=== PATIENT | female | born 1965 | race Asian ===

== ENCOUNTER 2018-03-28 17:28 | Observation (INO) | payer BC ==
[2018-03-28] MEDS ORDERED: TORAdol 30 mg Injection IV ONE ×2 (17:56→21:09)
[2018-03-28] MEDS ORDERED: Sodium Chloride 0.9% 1000 ML 1,000 ML IV STA (17:56)
[2018-03-28] MEDS ORDERED: Zofran 4 MG/2 ML VIAL IV ONE ×2 (17:56→21:09)
[2018-03-28] MEDS ORDERED: Sodium Chloride 0.9% 1000 ML 1,000 ML ONE (18:00)
[2018-03-28] MEDS ORDERED: TORAdol 30 mg Injection ONE ×2 (18:00→18:05)
[2018-03-28] MEDS ORDERED: Zofran 4 MG/2 ML VIAL ONE ×2 (18:00→18:05)
--- NOTE | 2018-03-28 18:00 | ERPHSYRPT ---
<DANIEL LEDEZMA - Last Filed: 03/28/18 20:29> - History of Present Illness Historian: patient Exam Limitations: no limitations Patient Subjective Stated Complaint: pt reports abd pain beginning last night states that pain would increase and she would have a small bm-pt is known lactose intolerant so she drank milk thinking she was constipated-reports diarrhea and vomiting x 1-states pain has continued Triage Nursing Assessment: pt warm and [id number] soft and nontender to palp- pt moaning upon arrival-resp nonlabored Timing/Duration: yesterday Activities at Onset: none Quality: cramping, sharpness Abdominal Pain Onset Location: RLQ Pain Radiation: no radiation Severity of Pain-Max: severe Severity of Pain-Current: severe Modifying Factors: Improves With: nothing Associated Symptoms: nausea, vomiting Previous symptoms: no prior history Hx Tetanus, Diphtheria Vaccination/Date Given: No Hx Influenza Vaccination/Date Given: No Hx Pneumococcal Vaccination/Date Given: No Immunizations Up to Date: Yes <WARD ERICKSON - Last Filed: 03/29/18 19:37> - History of Present Illness Time Seen by Provider: 03/28/18 17:55 Physician History: Pt started c/o RLQ abdominal pain, nausea, vomiting since yesterday. She denies fever, chills, diarrhea, or urinary complaints. (WARD ERICKSON) Allergies/Adverse Reactions: No Known Drug Allergies Allergy (Unverified 03/28/18 17:41) Home Medications: No Reportable Medications [No Reported Medications] 03/28/18 [History] - Review of Systems Constitutional: No Symptoms Respiratory: No Symptoms Cardiac: No Symptoms Abdominal/Gastrointestinal: Abdominal Pain, Nausea, Vomiting All Other Systems: Reviewed and Negative <WARD ERICKSON - Last Filed: 03/29/18 19:37> - Past Medical History Pertinent Past Medical History: No - Past Surgical History Past Surgical History: No - Social History Smoking Status: Never smoker Exposure to second hand smoke: No Drug Use: none Patient Lives Alone: No - Female History Hx Last Menstrual Period: currently Hx Now: No <WARD ERICKSON - Last Filed: 03/29/18 19:37> - Physical Exam General Appearance: mild distress Eye Exam: eyes nml inspection Ears, Nose, Throat Exam: normal ENT inspection Neck Exam: normal inspection, non-tender, supple Respiratory Exam: normal breath sounds, lungs clear, airway intact, No chest tenderness Cardiovascular Exam: regular rate/rhythm, normal heart sounds, normal peripheral pulses, No murmur Gastrointestinal/Abdomen Exam: soft, normal bowel sounds, tenderness (RLQ, mod. severe), No distention, No mass, No guarding, No pulsatile mass, No rebound, No hernia Pelvic Exam: not done Extremity Exam: normal inspection Neurologic Exam: alert, oriented x 3 Skin Exam: normal color, warm, dry, No rash Lymphatic Exam: No adenopathy SpO2 Interpretation: normal SpO2: 99 Oxygen Delivery: Room Air <WARD ERICKSON - Last Filed: 03/29/18 19:37> - Nursing Vital Signs Nursing Vital Signs: Initial Vital Signs Temperature 98.4 F 03/28/18 17:33 Pulse Rate 85 03/28/18 17:33 Respiratory Rate 18 03/28/18 17:33 Blood Pressure 168/75 03/28/18 17:33 O2 Sat by Pulse Oximetry 99 03/28/18 17:33 Pain Scale Pain Intensity 1 <DANIEL LEDEZMA - Last Filed: 03/28/18 20:29> - Course Nursing assessment & vital signs reviewed: Yes <WARD ERICKSON - Last Filed: 03/29/18 19:37> Ordered Tests: Active Orders 24 hr Category Date Time Status BLOOD CULTURE Stat Lab 03/28/18 20:40 Received UA W/ MICROSCOPIC Stat Lab 03/28/18 19:00 Completed Medication Summary Generic Name Dose Route Start Last Admin Trade Name Freq PRN Reason Stop Dose Admin Acetaminophen 650 mg 03/29/18 01:09 Tylenol 325 Mg PO 04/28/18 01:08 Q4H PRN PRN PAIN AND/OR FEVER Hydrocodone Bitart/Acetaminophen 1 tab 03/29/18 02:48 03/29/18 19:26 [place] 5/325 Mg PO 04/03/18 02:47 1 tab Q4H PRN PRN Administration PAIN Enoxaparin Sodium 40 mg 03/29/18 16:00 03/29/18 16:46 Enoxaparin Sodium SQ 04/28/18 15:59 40 mg Q24H DOMIINC Administration Dextrose/Sodium Chloride 1,000 mls @ 90 mls/hr 03/29/18 01:00 04/30/18 13:49 Dextrose 5% -0.45 Nacl 1000 Ml IV 04/28/18 00:59 90 mls/hr .Q11H7M DOMINIC Administration Cefoxitin Sodium 1 g in 50 mls @ 100 mls/hr 03/29/18 06:00 03/29/18 17:54 Mefoxin 1 Gm/ D5w 50 Ml IV 03/30/18 00:29 100 mls/hr Q6HT DOMINIC Administration Morphine Sulfate 2 - 4 mg 03/29/18 07:10 Morphine Sulfate 2 Mg Inj IV 04/03/18 07:09 Q2HPRN PRN PAIN Morphine Sulfate 2 - 4 mg 03/29/18 07:11 Morphine Sulfate 4 Mg Inj IV 04/03/18 07:10 Q2H PRN PRN PAIN Ondansetron HCl 4 mg 03/29/18 01:09 Zofran 4 Mg/2 Ml Vial IV 04/28/18 01:08 Q6H PRN PRN NAUSEA/VOMITING Discontinued Medications Generic Name Dose Route Start Last Admin Trade Name Freq PRN Reason Stop Dose Admin Bupivacaine HCl Confirm 03/28/18 21:26 Sensorcaine 0.25% 10 Ml Administered 03/28/18 21:27 Dose 10 ml .ROUTE .STK-MED ONE Famotidine Confirm 03/28/18 21:21 Pepcid 20 Mg Vial Administered 03/28/18 21:22 Dose 20 mg IV .STK-MED ONE Famotidine 20 mg 03/28/18 21:33 03/28/18 21:34 Pepcid 20 Mg Vial IV 03/28/18 21:34 20 mg 1HRPRIOR ONE Administration Sodium Chloride 1,000 mls @ 999 mls/hr 03/28/18 17:56 03/28/18 18:04 Sodium Chloride 0.9% 1000 Ml IV 03/28/18 18:56 999 mls/hr .Q1H1M STA Administration Sodium Chloride Confirm 03/28/18 18:00 Sodium Chloride 0.9% 1000 Ml Administered 03/28/18 18:01 Dose 1,000 mls @ ud .ROUTE .STK-MED ONE Sodium Chloride Confirm 03/28/18 18:05 Sodium Chloride 0.9% 1000 Ml Administered 03/28/18 18:06 Dose 1,000 mls @ ud .ROUTE .STK-MED ONE Piperacillin Sod/Tazobactam Sod 3.375 gm in 100 mls @ 200 mls/hr 03/28/18 20: 35 03/28/18 20:40 Zosyn 3.375gm/100 Ml D5w IV 03/28/18 21:04 200 mls/hr STAT STA Administration Piperacillin Sod/Tazobactam Sod Confirm 03/28/18 20:38 Zosyn 3.375gm/100 Ml D5w Administered 03/28/18 20:39 Dose 3.375 gm in 100 mls @ ud IV .STK-MED ONE Cefoxitin Sodium Confirm 03/28/18 21:21 Mefoxin 2 Gm Premix Administered 03/28/18 21:22 Dose 2 gm in 50 mls @ ud IV .STK-MED ONE Lactated Ringer's Confirm 03/28/18 21:21 Lactated Ringers Administered 03/28/18 21:22 Dose 1,000 mls @ ud IV .STK-MED ONE Lactated Ringer's Confirm 03/28/18 21:26 Lactated Ringers Administered 03/28/18 21:27 Dose 1,000 mls @ ud IV .STK-MED ONE Cefoxitin Sodium 2 gm in 50 mls @ 100 mls/hr 03/28/18 22:00 03/28/18 21:34 Mefoxin 2 Gm Premix IV 03/28/18 22:29 100 mls/hr ONCALLTOOR DOMINIC Administration Lactated Ringer's 1,000 mls @ 50 mls/hr 03/28/18 22:00 03/28/18 21:34 Lactated Ringers IV 04/27/18 21:59 50 mls/hr .Q20H DOMINIC Administration Sodium Chloride Confirm 03/28/18 21:38 Sodium Chloride 0.9% 1000 Ml Administered 03/28/18 21:39 Dose 3,000 mls @ ud .ROUTE .STK-MED ONE Dextrose/Sodium Chloride Confirm 03/29/18 00:49 Dextrose 5% -0.45 Nacl 1000 Ml Administered 03/29/18 00:50 Dose 1,000 mls @ ud IV .STK-MED ONE Cefoxitin Sodium 1 g in 50 mls @ 100 mls/hr 03/29/18 01:00 03/29/18 01:52 Mefoxin 1 Gm/ D5w 50 Ml IV 04/28/18 00:59 Not Given Q12H DOMINIC Ketorolac Tromethamine 30 mg 03/28/18 17:56 03/28/18 18:04 Toradol 30 Mg Injection IV 03/28/18 17:57 30 mg STAT ONE Administration Ketorolac Tromethamine Confirm 03/28/18 18:00 Toradol 30 Mg Injection Administered 03/28/18 18:01 Dose 30 mg .ROUTE .STK-MED ONE Ketorolac Tromethamine Confirm 03/28/18 18:05 Toradol 30 Mg Injection Administered 03/28/18 18:06 Dose 30 mg .ROUTE .STK-MED ONE Levalbuterol HCl Confirm 03/28/18 22:56 Xopenex 1.25 Mg/0.5 Ml Ud Nebule Administered 03/28/18 22:57 Dose 1.25 mg IH .STK-MED ONE Levalbuterol HCl 1.25 mg 03/28/18 22:50 03/29/18 15:58 Xopenex 1.25 Mg/0.5 Ml Ud Nebule IH 03/28/18 22:51 Not Given STAT ONE Morphine Sulfate 2 mg 03/29/18 01:06 Morphine Sulfate 2 Mg Inj IV 04/03/18 01:05 Q2HPRN PRN PAIN Ondansetron HCl 4 mg 03/28/18 17:56 03/28/18 18:04 Zofran 4 Mg/2 Ml Vial IV 03/28/18 17:57 4 mg STAT ONE Administration Ondansetron HCl Confirm 03/28/18 18:00 Zofran 4 Mg/2 Ml Vial Administered 03/28/18 18:01 Dose 4 mg .ROUTE .STK-MED ONE Ondansetron HCl Confirm 03/28/18 18:05 Zofran 4 Mg/2 Ml Vial Administered 03/28/18 18:06 Dose 4 mg .ROUTE .STK-MED ONE Sodium Chloride Confirm 03/28/18 22:56 Sodium Chloride 3 Ml Ud Nebules Administered 03/28/18 22:57 Dose 3 ml IH .STK-MED ONE Lab/Rad Data: Laboratory Result Diagrams 03/28/18 18:00 03/28/18 18:00 Laboratory Results 03/28/18 03/28/18 03/28/18 Range/Units 19:00 18:00 18:00 WBC 27.0 H* (4.0-10.5) K/mm3 RBC 4.65 (4.1-5.4) M/mm3 Hgb 7.9 L (12.0-16.0) gm/dl Hct 28.5 L (35-47) % MCV 61.3 L (78-100) fl MCH 16.9 L (26-32) pg MCHC 27.7 L (32-36) g/dl RDW 20.5 H (11.5-14.0) % Plt Count 411 (150-450) K/mm3 MPV 9.5 (6-9.5) fl Absolute Granulocytes 24.18 H (1.4-6.9) Segmented Neutrophils 89 H (36.0-66.0) % Lymphocytes (Manual) 9 L (24-44) % Monocytes (Manual) 2 (0.0-12.0) % Platelet Estimate NORMAL (NORMAL) RBC Morphology ABNORMAL Poikilocytosis 2+ Anisocytosis 3+ Microcytosis 1+ Target Cells RARE Ovalocytes 1+ Smear Path Review Pending Sodium 136 L (137-145) mmol/L Potassium 3.6 (3.5-5.1) mmol/L Chloride 100 (98-107) mmol/L Carbon Dioxide 20 L (22-30) mmol/L Anion Gap 20.4 H (5-15) MEQ/L BUN 15 (7-17) mg/dL Creatinine 1.16 H (0.52-1.04) mg/dL Estimated GFR 52.1 ML/MIN Glucose 153 H (74-106) mg/dL Calcium 9.6 (8.4-10.2) mg/dL Total Bilirubin 1.00 (0.2-1.3) mg/dL AST 16 (14-36) U/L ALT 16 (0-35) U/L Alkaline Phosphatase 67 (38-126) U/L Serum Total Protein 8.4 H (6.3-8.2) g/dL Albumin 4.6 (3.5-5.0) g/dL Amylase 85 (30-110) U/L Lipase 101 (23-300) U/L Ur Collection Type CATH Urine Color YELLOW (YELLOW) Urine Appearance CLEAR (CLEAR) Urine pH 5.0 (5-6) Ur Specific [place] 1.010 (1.005-1.025) Urine Protein TRACE (Negative) Urine Ketones NEGATIVE (NEGATIVE) Urine Blood TRACE NON-HEM (0-5) Ulises/ul Urine Nitrite NEGATIVE (NEGATIVE) Urine Bilirubin NEGATIVE (NEGATIVE) Urine Urobilinogen NORMAL (0-1) mg/dL Ur Leukocyte Esterase NEGATIVE (NEGATIVE) Urine Microscopic RBC 0-2 (0-2) /HPF Urine Microscopic WBC 0-2 (0-5) /HPF Ur Epithelial Cells RARE (FEW) /HPF Urine Bacteria RARE (NEGATIVE) /HPF Urine Culture Reflexed NO (NO) Urine Glucose NEGATIVE (NEGATIVE) mg/dL Specimen Received 03/28/18 1900 - Progress Discussed with DrHetal: Nathan (OBS - 2024) <DANIEL LEDEZMA - Last Filed: 03/28/18 20:29> - Progress Progress: improved <WARD ERICKSON - Last Filed: 03/29/18 19:37> - Progress Progress Note: 03/28/18 20:[address] LEDEZMA @ 2015: PERRL, EOMI, PHARYNX PINK, LUNGS CLEAR, NO CARDIAC RUB, MODERATE RLQ ABDOMINAL TENDERNESS WITH GUARDING, NO ANKLE EDEMA, ALERT & COOPERATIVE. (DANIEL LEDEZMA) 03/28/18 19:11 I discussed her results and current condition with Dr Ledezma, he will follow up on her CT abdomen, pelvis. (WRAD ERICKSON) - Departure Time of Disposition: 20:34 Departure Disposition: Observation Critical Care Time: No <DANIEL LEDEZMA - Last Filed: 03/28/18 20:29> <WARD ERICKSON - Last Filed: 03/29/18 19:37> - Departure Clinical Impression: ACUTE APPENDICITIS Condition: Stable
[2018-03-28] MEDS ORDERED: Sodium Chloride 0.9% 1000 ML 0 ML ONE (18:05)
[2018-03-28 18:26] LABS: ALBUMIN 4.6 g/dL (3.5-5.0); ANION GAP 20.4 MEQ/L (5-15); Calcium 9.6 mg/dL (8.4-10.2); Creatinine 1 1.16 mg/dL (0.52-1.04); Potassium 3.6 mmol/L (3.5-5.1); Total Protein 8.4 g/dL (6.3-8.2)
[2018-03-28 18:31] LABS: Granulocyte Absolute (ANC) 24.18 (1.4-6.9); Hematocrit 28.5 % (35-47); Hemoglobin 7.9 gm/dl (12.0-16.0); Mean Cell Volume 61.3 fl (78-100); Mean Corpuscular Hgb Concent. 27.7 g/dl (32-36); Mean Platelet Volume 9.5 fl (6-9.5); Platelet Count 411 K/mm3 (150-450); Red Blood Count 4.65 M/mm3 (4.1-5.4); Red Cell Distribution Width 20.5 % (11.5-14.0)
[2018-03-28 18:33] LABS: Mean Corpuscular Hemoglobin 16.9 pg (26-32)
[2018-03-28 20:11] LABS: Appearance CLEAR (CLEAR)
[2018-03-28 20:12] LABS: Bacteria RARE /HPF (NEGATIVE); Bilirubin NEGATIVE (NEGATIVE); Blood TRACE NON-HEM Ery/ul (0-5); Epithelial Cells RARE /HPF (FEW); Glucose NEGATIVE (NEGATIVE); Ketones NEGATIVE (NEGATIVE); Leukocyte Esterase NEGATIVE (NEGATIVE); Nitrite NEGATIVE (NEGATIVE); Protein,Urine Dip TRACE (Negative); RBC 0-2 /HPF (0-2); Urobilinogen NORMAL mg/dL (0-1); WBC 0-2 /HPF (0-5)
[2018-03-28] MEDS ORDERED: Zosyn 3.375GM/100 Ml D5W 3.375 GM/100 ML IVPB IV STA (20:35)
[2018-03-28] MEDS ORDERED: Zosyn 3.375GM/100 Ml D5W 3.375 GM/100 ML IVPB IV ONE (20:38)
[2018-03-28] MEDS ORDERED: Quelicin Fliptop 200 MG/10 ML IV ONE (21:09)
[2018-03-28] MEDS ORDERED: Decadron 4 MG INJ IV ONE (21:09)
[2018-03-28] MEDS ORDERED: SUBLIMAZE 100 MCG/2 ML IV ONE (21:09)
[2018-03-28] MEDS ORDERED: BRIDION 200MG/2ML IV ONE (21:09)
[2018-03-28] MEDS ORDERED: DIPRIVAN 200 MG/20 ML IV ONE (21:09)
[2018-03-28] MEDS ORDERED: Zemuron 100 MG/10 ML IV ONE (21:09)
--- NOTE | 2018-03-28 21:17 | XRAY ---
Indication: Abdomen pain, constipation, nausea, and vomiting. Multiple contiguous axial images obtained through the abdomen and pelvis using 80 cc Isovue 370 contrast only. Comparison: None. Lung bases demonstrate minimal bibasilar fibrosis/scarring. No infiltrate or effusion. Heart is not enlarged. Noncontrasted stomach and bowel loops appear unremarkable. Appendix is prominent up to 11 mm diameter with wall thickening and periappendiceal stranding consistent with acute appendicitis. 5 mm appendicolith at the base. Tiny free fluid but no walled off fluid collection or free air. Minimal distal descending/sigmoid diverticulosis without diverticulitis. 1.3 cm gallstone. A few bilateral renal cortical cysts, largest on the left measuring 1 cm. Urinary bladder demonstrates tiny intraluminal air bubbles either from recent catheterization versus air forming bacterial infection. Remaining liver, pancreas, spleen, adrenal glands, kidneys, ureters, bladder, and uterus appear unremarkable. Mild iliac calcifications without AAA. No pathologic retroperitoneal lymphadenopathy. Osseous structures intact with minimal levoscoliosis. Impression: 1. CT findings as detailed favoring acute appendicitis with appendicolith. No Complications. 2. 1.3 cm gallstone. Ultrasound may yield further information. 3. Urinary bladder intraluminal air bubbles either from recent catheterization versus air forming bacterial infection. 4. Minimal colonic diverticulosis and bilateral renal cysts. Comment: Preliminary interpretation was made by [facility]. No discrepancy. CTDI 23.29
[2018-03-28] MEDS ORDERED: Pepcid 20 MG VIAL IV ONE ×2 (21:21→21:33)
[2018-03-28] MEDS ORDERED: MEFOXIN 2 GM PREMIX** 2 GM/50 ML ML IV ONE (21:21)
[2018-03-28] MEDS ORDERED: Lactated Ringers 1,000 ML IV ONE ×2 (21:21→21:26)
[2018-03-28] MEDS ORDERED: Sensorcaine 0.25% 10 ML ONE (21:26)
[2018-03-28] MEDS ORDERED: Lactated Ringers 1,000 ML IV SCH (22:00)
[2018-03-28] MEDS ORDERED: MEFOXIN 2 GM PREMIX** 2 GM/50 ML ML IV SCH (22:00)
[2018-03-28] MEDS ORDERED: Xopenex 1.25 MG/0.5 ML UD NEBULE IH ONE ×2 (22:50→22:56)
[2018-03-28] MEDS ORDERED: Sodium Chloride 3 ML UD NEBULES IH ONE (22:56)
[2018-03-29] MEDS ORDERED: Dextrose 5% -0.45 NaCl 1000 ML 1,000 ML IV ONE (00:49)
[2018-03-29] MEDS: Dextrose 5% -0.45 NaCl 1000 ML 1,000 ML IV SCH ×2 (00:55→13:49)
[2018-03-29] MEDS ORDERED: MEFOXIN 1 Gm/ D5W 50 Ml** 1 G/50 ML ML IV SCH (01:00)
[2018-03-29] MEDS ORDERED: MORPHINE SULFATE 2 MG INJ IV PRN ×2 (01:06→07:10)
[2018-03-29] MEDS ORDERED: Zofran 4 MG/2 ML VIAL IV PRN (01:09)
[2018-03-29] MEDS ORDERED: TYLENOL 325 MG PO PRN (01:09)
[2018-03-29 01:31] LABS: Lymphocytes 9 % (24-44); Monocyte 2 % (0.0-12.0); Neutrophils 89 % (36.0-66.0); Platelet Estimate NORMAL (NORMAL); Total Cells Counted 100
[2018-03-29 01:32] LABS: ANISOCYTOSIS 3+; Poikilocytosis 2+
[2018-03-29 01:33] LABS: Microcytosis 1+
[2018-03-29 01:34] LABS: Ovalocytes 1+
[2018-03-29 01:35] LABS: Targert Cells RARE
[2018-03-29] MEDS: NORCO 5/325 MG PO PRN ×4 (02:52→19:26)
[2018-03-29 06:03] LABS: Hematocrit 24.7 % (35-47); Mean Cell Volume 62.4 fl (78-100); Mean Corpuscular Hgb Concent. 27.5 g/dl (32-36); Platelet Count 326 K/mm3 (150-450); Red Blood Count 3.96 M/mm3 (4.1-5.4); Red Cell Distribution Width 20.2 % (11.5-14.0); White Blood Count 21.3 K/mm3 (4.0-10.5)
[2018-03-29 06:09] LABS: Mean Corpuscular Hemoglobin 17.1 pg (26-32)
[2018-03-29 06:10] LABS: Hemoglobin 6.8 gm/dl (12.0-16.0)
[2018-03-29] MEDS ORDERED: MORPHINE SULFATE 4 MG INJ IV PRN (07:11)
[2018-03-29] MEDS: MEFOXIN 1 Gm/ D5W 50 Ml** 1 G/50 ML ML IV SCH ×3 (07:34→17:54)
[2018-03-29 08:04] LABS: BAND 33 % (0.0-2.0); Lymphocytes 1 % (24-44); Monocyte 3 % (0.0-12.0); Neutrophils 63 % (36.0-66.0); Platelet Estimate NORMAL (NORMAL); Total Cells Counted 100
[2018-03-29 08:05] LABS: Polychromasia 1+
[2018-03-29 08:06] LABS: Hypochromia 2+; Toxic Granulation 1+
--- NOTE | 2018-03-29 09:07 | XRAY ---
Indication: Chest congestion. Postop appendectomy. Comparison: August 02, 2010. Portable chest underinflated today with bilateral subsegmental atelectasis. No infiltrate, consolidation, or pneumothorax. Heart is borderline enlarged reasonably explained by underinflation. Bony thorax intact. Impression: Nonacute underinflated chest. Comment: Preliminary interpretation was made by [facility]. No discrepancy.
--- NOTE | 2018-03-29 12:37 | OP ---
SURGERY DATE/TIME: 03/28/20182205 PREOPERATIVE DIAGNOSIS: Acute appendicitis. POSTOPERATIVE DIAGNOSIS: Acute ruptured appendicitis with abscess. PROCEDURE: Laparoscopic appendectomy with evaluation of pelvic abscess and right suprahepatic abscess. SURGEON: Duane Philip M.D. ANESTHESIA: General. COMPLICATIONS: None. CONDITION: Stable. INDICATION: A patient with acute pain. She does look toxic. She was immediately taken to surgery. DESCRIPTION OF PROCEDURE: General anesthetic. Routine prep and drape. Veress needle inserted. Opening pressure of 1, insufflating pressure 14. A 12 port introduced. Two - 5's laterally. Good visualization. The base of the appendix was identified. It was clearly gangrenous, clearly perforated and there was at least 8 ounces of abscess down the pelvis at least 6 to 8 ounces of abscess over the liver. The abscesses were evacuated. Program Evaluation Consultant culture sent. The base of the appendix was good, taken with 2.5 vascular cartridge. It was necessary to take the mesoappendix with three cartridges. Appendix placed in a condom bag and removed. The pelvis was gently irrigated. The right gutter irrigated and the suprahepatic area irrigated and this time it cleaned up nicely and there were no drains placed. Port site closed with 0 Vicryl with hole closure device. Skin closed 4-0 Vicryl and Steri-Strips. The patient tolerated the procedure satisfactorily.
[2018-03-29] MEDS ORDERED: ENOXAPARIN SODIUM SQ SCH (16:00)
[2018-03-30] MEDS: MEFOXIN 1 Gm/ D5W 50 Ml** 1 G/50 ML ML IV SCH (00:28)
[2018-03-30] MEDS: Dextrose 5% -0.45 NaCl 1000 ML 1,000 ML IV SCH (01:44)
[2018-03-30] MEDS: NORCO 5/325 MG PO PRN ×3 (02:55→13:57)
[2018-03-30 05:34] LABS: BASOPHIL % 0.1 % (0.0-0.4); Basophil (Absolute #) 0.01 (0-0.4); Eosinophil % 0.2 % (0.00-5.0); Eosinophil (Absolute #) 0.03 (0-0.5); Granulocyte Absolute (ANC) 16.72 (1.4-6.9); Granulocytes % 89.9 % (36.0-66.0); Hematocrit 22.7 % (35-47); Lymphocyte (Absolute #) 0.99 (1.0-4.6); Lymphocytes % 5.3 % (24.0-44.0); Mean Cell Volume 62.7 fl (78-100); Mean Corpuscular Hemoglobin 17.1 pg (26-32); Mean Corpuscular Hgb Concent. 27.3 g/dl (32-36); Monocyte (Absolute #) 0.83 (0.0-1.3); Monocytes % 4.5 % (0.0-12.0); Platelet Count 309 K/mm3 (150-450); Red Blood Count 3.62 M/mm3 (4.1-5.4); Red Cell Distribution Width 20.1 % (11.5-14.0); White Blood Count 18.6 K/mm3 (4.0-10.5)
[2018-03-30 05:43] LABS: Hemoglobin 6.2 gm/dl (12.0-16.0)
[2018-03-30] MEDS ORDERED: Lasix 20 MG/2 ML IV ONE (06:14)
[2018-03-30 09:05] LABS: Slide Review 1 YES
[2018-03-30 09:08] LABS: ABO TYPING A; Antibody Screen NEGATIVE (NEGATIVE); RH TYPING POSITIVE
[2018-03-30] MEDS ORDERED: Sodium Chloride 0.9% 500 ML 500 ML IV SCH (09:15)
[2018-03-30] MEDS ORDERED: Lasix 20 MG/2 ML ONE (12:52)
[2018-03-30 13:09] VITALS: BP 154/79; PULSE 79; O2SAT 97
[2018-03-30 14:37] LABS: Hemoglobin 7.9 gm/dl (12.0-16.0)
== END 2018-03-30 15:45 | disposition home or self-care (01) ==
LOC: ED 17:28 → MED SURG 21:08
PROVIDERS: ADMIT Surgery; ATTEND Surgery
PROC: 0DTJ4ZZ Resection of Appendix, Percutaneous Endoscopic Approach (ICD-10-PCS; principal; 2018-03-28)
DX: K35.2 Acute appendicitis with generalized peritonitis (principal)
CPT/HCPCS: 36000; 36415; 44970; 71045; 74177; 80053; 81000; 82150; 83690; 84703; 85014; 85018; 85025; 86850; 86900; 86901; 86922; 87040; 87070; 87077; 87186; 94002; 94640; 94760; 94770; 96360; 96365; 99285; G0378; P9016; P9612; 36430; 99140; J0330; J0694; J1100; J1650; J1885; J1940; J2270; J2405; J2543; J2704; J3010; A9270-GY

== ENCOUNTER 2022-10-25 17:27 | Emergency (ER) | payer OTHER ==
[2022-10-25] MEDS ORDERED: Sodium Chloride 0.9% 1000 ML 1,000 ML IV STA ×3 (17:51→21:04)
[2022-10-25] MEDS ORDERED: Sodium Chloride 0.9% 1000 ML 1,000 ML ONE ×3 (18:04→19:13)
[2022-10-25 18:32] LABS: Hematocrit 44.9 % (35-47); Hemoglobin 15.2 g/dL (12.0-16.0); Mean Cell Volume 96.1 fL (78-100); Mean Corpuscular Hemoglobin 32.5 pg (26-32); Mean Corpuscular Hgb Concent. 33.9 g/dL (32-36); Mean Platelet Volume 11.8 fL (7.5-11.0); Platelet Count 80 x10^3/uL (150-450); Red Blood Count 4.67 x10^6/uL (4.1-5.4); Red Cell Distribution Width 15.8 % (11.5-14.0); White Blood Count 16.9 x10^3/uL (4.0-10.5)
[2022-10-25 18:34] LABS: Appearance TURBID (CLEAR); Bilirubin LARGE (NEGATIVE); Glucose NEGATIVE (NEGATIVE); Ketones SMALL-15 (NEGATIVE); Specific Gravity 1.025 (1.005-1.025)
[2022-10-25 18:35] LABS: Dipstick done @ ? MAIN LAB; Nitrite NEGATIVE (NEGATIVE); Protein,Urine Dip >=300 (Negative); RBC LARGE Ery/ul (0-5); Urobilinogen 2 mg/dL (0-1)
[2022-10-25] MEDS ORDERED: PIPERACILLIN/TAZOBACTAM 3.375 GM in Sodium Chloride 100ML MINI-BAG PLUS 100 ML IV ONE (18:37)
[2022-10-25 18:39] LABS: VBG CARBOXYHEMOGLOBIN 2.3 % T HGB (0.0-6.9); VBG HCO3- 10.1 meq/L (22-28); VBG HEMOGLOBIN 15.8; VBG O2 SATURATION 83.7 (95-100); VBG pH 7.25 (7.32-7.42)
[2022-10-25 18:46] LABS: Bacteria FEW /HPF (NEGATIVE); Epithelial Cells FEW /HPF (FEW); Mucus SLIGHT /HPF (NEGATIVE); RBC >101 /HPF (0-2); Urine Cultured Indicated? YES; WBC 51-100 /HPF (0-5)
[2022-10-25 18:48] LABS: ALBUMIN 3.3 g/dL (3.5-5.0); BILIRUBIN,TOTAL 4.6 mg/dL (0.2-1.3); Calcium 9.5 mg/dL (8.4-10.2); Creatinine 1 4.54 mg/dL (0.52-1.04); EST GLOMERULAR FILTRATION RATE 10.6 ML/MIN; Total Protein 8.2 g/dL (6.3-8.2)
--- NOTE | 2022-10-25 18:52 | ERPHSYRPT ---
- History of Present Illness Time Seen by Provider: 10/25/22 17:34 Source: patient Exam Limitations: no limitations Patient Subjective Stated Complaint: pt here for burning with urination, she has been on 2 rounds of antiboitcs, Triage Nursing Assessment: pt alert, walked in, resp easy, skin w/d/p, abd soft, Physician History: 57-year-old female with a history of diabetes mellitus, hypertension, recurrent UTIs, recently finished 2 course of antibiotics for UTI presented in the ER with chief complaint of increasing urinary frequency, dysuria for the last few days and since morning having hematuria without clots. Patient reports she started to feel better after her last round of antibiotic with Keflex but again having similar symptoms. Patient report razor blade pain with urination. No nausea or vomiting reported. Feels weak fatigued and tired. Patient is tachycardic on presentation with heart rate in 130s. Patient denies any abdominal pain nausea or vomiting. No difficulty breathing. No fever or chills reported. Timing/Duration: week(s), gradual onset, worse Quality: sharpness Onset Location: urethral Pain Radiation: none Severity of Pain-Max: moderate Severity of Pain-Current: none Prior abdominal problems: similar symptoms Sexual intercourse history: non-contributory Modifying Factors: Worsens With: urinating Associated Symptoms: dysuria, urinary frequency, No abdominal pain, No vomiting, No lower back pain, No swelling, No syncope, No vaginal discharge Allergies/Adverse Reactions: Iodinated Contrast Media Allergy (Mild, Verified 10/25/22 17:54) Itching iv contrast on 06-17-22 made patient itch. Home Medications: Glipizide 10 mg [Glucotrol 10 MG] 5 mg PO DAILY 10/25/22 [History] Losartan Potassium 100 mg PO DAILY 10/25/22 [History] Hx Tetanus, Diphtheria Vaccination/Date Given: No Hx Influenza Vaccination/Date Given: No Hx Pneumococcal Vaccination/Date Given: No Travel Risk - International Travel Have you traveled outside of the country in past 3 weeks: No - Coronavirus Screening Are you exhibiting any of the following symptoms?: No - Vaccine Status Have you recieved a Covid-19 vaccination: Yes Instructional Consultant: Unknown - Vaccination Dates Date of 2cond Vaccination (if applicable): 2020 Dates if Unknown: ? - Review of Systems Constitutional: Fever, Chills, Fatigue, Weakness Eyes: No Symptoms Ears, Nose, & Throat: No Symptoms Respiratory: No Symptoms Cardiac: No Symptoms Abdominal/Gastrointestinal: No Symptoms Genitourinary Symptoms: Dysuria, Frequency, Hematuria, No Flank Pain, No Vaginal Bleeding Musculoskeletal: No Symptoms Skin: No Symptoms Neurological: No Symptoms Psychological: No Symptoms Endocrine: No Symptoms Hematologic/Lymphatic: No Symptoms Immunological/Allergic: No Symptoms - Past Medical History Pertinent Past Medical History: No Neurological History: No Pertinent History ENT History: No Pertinent History Cardiac History: Hypertension Respiratory History: No Pertinent History Endocrine Medical History: Diabetes Type II Musculoskeletal History: No Pertinent History GI Medical History: No Pertinent History History: No Pertinent History Psycho-Social History: No Pertinent History Female Reproductive Disorders: No Pertinent History - Past Surgical History Past Surgical History: No - Social History Smoking Status: Never smoker Exposure to second hand smoke: No Drug Use: none Patient Lives Alone: No - Nursing Vital Signs Nursing Vital Signs: Initial Vital Signs Temperature 97.4 F 10/25/22 17:46 Pulse Rate 127 H 10/25/22 17:46 Respiratory Rate 22 10/25/22 17:46 Blood Pressure 103/48 10/25/22 17:46 O2 Sat by Pulse Oximetry 98 10/25/22 17:46 Pain Scale Pain Intensity 0 - Physical Exam General Appearance: no apparent distress, alert Eye Exam: PERRL/EOMI Ears, Nose, Throat Exam: normal ENT inspection, TMs normal, pharynx normal, moist mucous membranes Neck Exam: normal inspection, non-tender, supple, full range of motion Respiratory Exam: normal breath sounds, lungs clear Cardiovascular Exam: normal heart sounds, tachycardia Gastrointestinal/Abdomen Exam: soft, normal bowel sounds, No tenderness Back Exam: normal inspection, normal range of motion Extremity Exam: normal inspection, normal range of motion Neurologic Exam: alert, oriented x 3, cooperative SpO2 Interpretation: normal SpO2: 98 O2 Delivery: Room Air Procedures - Central Line Time Of Procedure: 22:44 Timeout: Performed Central Line Lumen: triple Lumen Size: 7 German Central Line Procedure: chlorahexadine prep, sterile drapes applied, Aseptic Technique, Seldinger Technique Central Line Postion: femoral (R) Anesthesia: 1% Lidocaine cc's of anesthesia: 3 Ultrasound Guided Placement: Yes Complications: none Central Line Post Position: good blood return - Course EKG Interpreted by Me: RATE ([id number]), Sinus Tach, NORMAL AXIS, NORMAL INTERVALS (Clean ribbon margin and lateral leads. Mild ST depression in inferior leads.) Ordered Tests: Active Orders 24 hr Category Date Time Status IV Insertion STAT Care 10/25/22 17:51 Active IV Insertion-2nd Peripheral STAT Care 10/25/22 18:09 Active NPO (ED) STAT Care 10/25/22 17:51 Active ABDOMEN AND PELVIS W/0 CONTRAS [CT] Stat Exams 10/25/22 17:52 Completed BLOOD CULTURE Stat Lab 10/25/22 18:28 Received BMP Stat Lab 10/25/22 21:26 Completed CBC W DIFF Stat Lab 10/25/22 18:27 Completed CBC W DIFF Stat Lab 10/26/22 05:15 Completed CMP Stat Lab 10/25/22 18:27 Completed CMP Stat Lab 10/26/22 05:15 Completed CULTURE,URINE Stat Lab 10/25/22 18:08 Received LIPASE Stat Lab 10/25/22 17:55 Completed Lactic Acid Stat Lab 10/25/22 18:00 Completed Lactic Acid Stat Lab 10/25/22 20:12 Completed Lactic Acid Stat Lab 10/25/22 23:08 Completed Manual Differential NC Stat Lab 10/25/22 18:27 Completed Manual Differential NC Stat Lab 10/26/22 05:15 Completed POCT GLUCOSE Stat Lab 10/25/22 18:18 Completed PROCALCITONIN Stat Lab 10/25/22 18:28 Completed PROCALCITONIN Stat Lab 10/26/22 05:15 Completed UA W/RFX CULTURE Stat Lab 10/25/22 18:08 Completed VBG [VENOUS BLOOD GAS] Stat Lab 10/25/22 18:11 Completed Medication Summary Generic Name Dose Route Start Last Admin Trade Name Freq PRN Reason Stop Dose Admin Sodium Chloride 1,000 mls @ 125 mls/hr 10/25/22 19:30 10/25/22 23:39 Sodium Chloride 0.9% 1000 Ml IV 11/24/22 19:29 0 mls/hr .Q8H DOMINIC Infusion Norepinephrine/Dextrose 8 mg in 250 mls @ 15 mls/hr 10/25/22 22:48 10/26/22 04:40 Norepinephrine 8 Mg/250 Ml-D5w IV 11/24/22 22:47 8 mcg/min .[id number] PRN 15 mls/hr HYPOTENSION Titration Protocol 8 MCG/MIN Lactated Ringer's 1,000 mls @ 150 mls/hr 10/25/22 23:45 10/25/22 23:39 Lactated Ringers IV 11/24/22 23:44 150 mls/hr .Q6H40M DOMINIC Administration Sodium Chloride 1,000 mls @ 150 mls/hr 10/26/22 05:45 10/26/22 05:43 Sodium Chloride 0.9% 1000 Ml IV 11/25/22 05:44 150 mls/hr .Q6H40M DOMINIC Administration Discontinued Medications Generic Name Dose Route Start Last Admin Trade Name Palmerq PRN Reason Stop Dose Admin Sodium Chloride 1,000 mls @ 999 mls/hr 10/25/22 17:51 10/25/22 19:21 Sodium Chloride 0.9% 1000 Ml IV 10/25/22 18:51 Infused .Q1H1M STA Infusion Sodium Chloride Confirm 10/25/22 18:04 Sodium Chloride 0.9% 1000 Ml Administered 10/25/22 18:05 Dose 1,000 mls @ ud .ROUTE .STK-MED ONE Sodium Chloride 1,000 mls @ 999 mls/hr 10/25/22 18:09 10/25/22 20:20 Sodium Chloride 0.9% 1000 Ml IV 10/25/22 19:09 Infused .Q1H1M STA Infusion Sodium Chloride Confirm 10/25/22 18:10 Sodium Chloride 0.9% 1000 Ml Administered 10/25/22 18:11 Dose 1,000 mls @ ud .ROUTE .STK-MED ONE Piperacillin Sod/Tazobactam 100 mls @ 200 mls/hr 10/25/22 18:37 10/25/22 19:14 Sod 3.375 gm/ Sodium Chloride IV 10/25/22 19:06 200 mls/hr STAT ONE Administration Sodium Chloride Confirm 10/25/22 19:09 Sodium Chloride 100ml Mini-Bag Plus Administered 10/25/22 19:10 Dose 100 mls @ ud IV .STK-MED ONE Sodium Chloride Confirm 10/25/22 19:13 Sodium Chloride 0.9% 1000 Ml Administered 10/25/22 19:14 Dose 1,000 mls @ ud .ROUTE .STK-MED ONE Sodium Chloride 1,000 mls @ 999 mls/hr 10/25/22 21:04 10/25/22 21:07 Sodium Chloride 0.9% 1000 Ml IV 10/25/22 22:04 999 mls/hr .Q1H1M STA Administration Norepinephrine/Dextrose Confirm 10/25/22 22:45 Norepinephrine 8 Mg/250 Ml-D5w Administered 10/25/22 22:46 Dose 8 mg in 250 mls @ ud IV .STK-MED ONE Vancomycin HCl 1 gm in 200 mls @ 125 mls/hr 10/25/22 22:56 10/25/22 23:20 Vancomycin 1 Gram/200 Ml Bag IV 10/26/22 00:31 125 mls/hr ONCE ONE 125 mls/hr Administration Vancomycin HCl Confirm 10/25/22 23:12 Vancomycin 1 Gram/200 Ml Bag Administered 10/25/22 23:13 Dose 1 gm in 200 mls @ ud IV .STK-MED ONE Piperacillin Sod/Tazobactam 100 mls @ 200 mls/hr 10/26/22 05:01 10/26/22 05:47 Sod 2.25 gm/ Sodium Chloride IV 10/26/22 05:30 200 mls/hr STAT ONE Administration Piperacillin Sod/Tazobactam Sod Confirm 10/25/22 19:09 Piperacillin/Tazobactam Sodium 3.375 Gm Vial Administered 10/25/22 19:10 Dose 3.375 gm IV .STK-MED ONE Sodium Bicarbonate 50 meq 10/26/22 06:14 10/26/22 06:22 Sodium Bicarbonate 1 Meq/Ml 50ml Syringe IV 10/26/22 06:15 50 meq STAT ONE Administration Sodium Bicarbonate Confirm 10/26/22 06:21 Sodium Bicarbonate 1 Meq/Ml 50ml Syringe Administered 10/26/22 06:22 Dose 50 meq IV .STK-MED ONE Vancomycin HCl 125 mg 10/25/22 22:54 10/25/22 23:40 Vancomycin Hcl 125 Mg Capsule PO 10/25/22 22:55 125 mg ONCE STA Administration Lab/Rad Data: Laboratory Result Diagrams 10/26/22 05:15 10/26/22 05:15 Laboratory Results 10/26/22 10/26/22 10/26/22 Range/Units 05:15 05:15 05:15 WBC 16.0 H (4.0-10.5) x10^3/uL RBC 4.31 (4.1-5.4) x10^6/uL Hgb 14.1 (12.0-16.0) g/dL Hct 41.8 (35-47) % MCV 97.0 (78-100) fL MCH 32.7 H (26-32) pg MCHC 33.7 (32-36) g/dL RDW 16.2 H (11.5-14.0) % Plt Count 69 L (150-450) x10^3/uL MPV 11.8 H (7.5-11.0) fL Gran % 48.0 (36.0-66.0) % Immature Gran % (Auto) 4.7 H (0.00-0.4) % Nucleat RBC Rel Count 0.2 H (0.00-0.1) % Eos # (Auto) 4.21 H (0-0.5) x10^3/uL Immature Gran # (Auto) 0.75 H (0.00-0.03) x10^3u/L Absolute Lymphs (auto) 1.06 (1.0-4.6) x10^3/uL Absolute Monos (auto) 2.17 H (0.0-1.3) x10^3/uL Absolute Nucleated RBC 0.04 H (0.00-0.01) x10^3u/L Lymphocytes % 6.6 L (24.0-44.0) % Monocytes % 13.5 H (0.0-12.0) % Eosinophils % 26.3 H (0.00-5.0) % Basophils % 0.9 (0.0-0.4) % Absolute Granulocytes 7.70 H (1.4-6.9) x10^3/uL Segmented Neutrophils (36.0-66.0) % Band Neutrophils (0.0-2.0) % Lymphocytes (Manual) (24-44) % Monocytes (Manual) (0.0-12.0) % Basophils # 0.14 (0-0.4) x10^3/uL Toxic Granulation Dohle Bodies Platelet Estimate (NORMAL) RBC Morphology pO2/FiO2 Ratio % VBG pH (7.32-7.42) VBG pCO2 at Pat Temp (42-55) mm/Hg VBG pO2 at Pat Temp (25-40) mm/Hg VBG HCO3 (22-28) meq/L VBG O2 Sat (Jonathan) (95-100) VBG Base Excess (-2.0-2.0) VBG Hemoglobin VBG Carboxyhemoglobin (0.0-6.9) % T HGB POC Potassium (3.5-5.1) Sodium 135 L (137-145) mmol/L Potassium 3.5 (3.5-5.1) mmol/L Chloride 106 (98-107) mmol/L Carbon Dioxide 10 L* (22-30) mmol/L Anion Gap 22.8 H (5-15) MEQ/L BUN 48 H (7-17) mg/dL Creatinine 3.63 H (0.52-1.04) mg/dL Estimated GFR 13.7 ML/MIN Glucose 103 (74-106) mg/dL POC Glucometer (74 to 106) mg/dL Lactic Acid (0.4-2.0) Calcium 8.4 (8.4-10.2) mg/dL Total Bilirubin 4.80 H (0.2-1.3) mg/dL AST 27 (14-36) U/L ALT 49 H (0-35) U/L Alkaline Phosphatase 242 H (38-126) U/L Serum Total Protein 6.9 (6.3-8.2) g/dL Albumin 2.7 L (3.5-5.0) g/dL Lipase (23-300) U/L Procalcitonin 40.900 H* (0.030-0.080) ng/mL Urinalys Dipstick Clnc Urine Color (YELLOW) Urine Appearance (CLEAR) Urine pH (5-6) Ur Specific B[place] (1.005-1.025) POC Urine Protein Conf (Negative) Urine Ketones (NEGATIVE) Urine Nitrite (NEGATIVE) Urine Bilirubin (NEGATIVE) Urine Urobilinogen (0-1) mg/dL Urine Leukocytes (NEGATIVE) Urine WBC (Auto) (0-5) /HPF Urine RBC (Auto) (0-2) /HPF U Epithel Cells (Auto) (FEW) /HPF Urine Bacteria (Auto) (NEGATIVE) /HPF Urine RBC (0-5) Ulises/ul Urine Mucus (Auto) (NEGATIVE) /HPF Ur Culture Indicated? Urine Glucose (NEGATIVE) mg/dL Influenza Type A Ag (NEGATIVE) Influenza Type B Ag (NEGATIVE) RSV (PCR) (Negative) SARS-CoV-2 (PCR) (NEGATIVE) 10/25/22 10/25/22 10/25/22 Range/Units 23:08 21:26 20:12 WBC (4.0-10.5) x10^3/uL RBC (4.1-5.4) x10^6/uL Hgb (12.0-16.0) g/dL Hct (35-47) % MCV (78-100) fL MCH (26-32) pg MCHC (32-36) g/dL RDW (11.5-14.0) % Plt Count (150-450) x10^3/uL MPV (7.5-11.0) fL Gran % (36.0-66.0) % Immature Gran % (Auto) (0.00-0.4) % Nucleat RBC Rel Count (0.00-0.1) % Eos # (Auto) (0-0.5) x10^3/uL Immature Gran # (Auto) (0.00-0.03) x10^3u/L Absolute Lymphs (auto) (1.0-4.6) x10^3/uL Absolute Monos (auto) (0.0-1.3) x10^3/uL Absolute Nucleated RBC (0.00-0.01) x10^3u/L Lymphocytes % (24.0-44.0) % Monocytes % (0.0-12.0) % Eosinophils % (0.00-5.0) % Basophils % (0.0-0.4) % Absolute Granulocytes (1.4-6.9) x10^3/uL Segmented Neutrophils (36.0-66.0) % Band Neutrophils (0.0-2.0) % Lymphocytes (Manual) (24-44) % Monocytes (Manual) (0.0-12.0) % Basophils # (0-0.4) x10^3/uL Toxic Granulation Dohle Bodies Platelet Estimate (NORMAL) RBC Morphology pO2/FiO2 Ratio % VBG pH (7.32-7.42) VBG pCO2 at Pat Temp (42-55) mm/Hg VBG pO2 at Pat Temp (25-40) mm/Hg VBG HCO3 (22-28) meq/L VBG O2 Sat (Jonathan) (95-100) VBG Base Excess (-2.0-2.0) VBG Hemoglobin VBG Carboxyhemoglobin (0.0-6.9) % T HGB POC Potassium (3.5-5.1) Sodium 134 L (137-145) mmol/L Potassium 3.7 (3.5-5.1) mmol/L Chloride 107 (98-107) mmol/L Carbon Dioxide 9 L* (22-30) mmol/L Anion Gap 22.4 H (5-15) MEQ/L BUN 47 H (7-17) mg/dL Creatinine 4.09 H (0.52-1.04) mg/dL Estimated GFR 12.0 ML/MIN Glucose 88 (74-106) mg/dL POC Glucometer (74 to 106) mg/dL Lactic Acid 6.4 H 8.8 H (0.4-2.0) Calcium 8.2 L (8.4-10.2) mg/dL Total Bilirubin (0.2-1.3) mg/dL AST (14-36) U/L ALT (0-35) U/L Alkaline Phosphatase (38-126) U/L Serum Total Protein (6.3-8.2) g/dL Albumin (3.5-5.0) g/dL Lipase (23-300) U/L Procalcitonin (0.030-0.080) ng/mL Urinalys Dipstick Clnc Urine Color (YELLOW) Urine Appearance (CLEAR) Urine pH (5-6) Ur Specific Bunnlevel (1.005-1.025) POC Urine Protein Conf (Negative) Urine Ketones (NEGATIVE) Urine Nitrite (NEGATIVE) Urine Bilirubin (NEGATIVE) Urine Urobilinogen (0-1) mg/dL Urine Leukocytes (NEGATIVE) Urine WBC (Auto) (0-5) /HPF Urine RBC (Auto) (0-2) /HPF U Epithel Cells (Auto) (FEW) /HPF Urine Bacteria (Auto) (NEGATIVE) /HPF Urine RBC (0-5) Ulises/ul Urine Mucus (Auto) (NEGATIVE) /HPF Ur Culture Indicated? Urine Glucose (NEGATIVE) mg/dL Influenza Type A Ag (NEGATIVE) Influenza Type B Ag (NEGATIVE) RSV (PCR) (Negative) SARS-CoV-2 (PCR) (NEGATIVE) 10/25/22 10/25/22 10/25/22 Range/Units 18:36 18:28 18:27 WBC (4.0-10.5) x10^3/uL RBC (4.1-5.4) x10^6/uL Hgb (12.0-16.0) g/dL Hct (35-47) % MCV (78-100) fL MCH (26-32) pg MCHC (32-36) g/dL RDW (11.5-14.0) % Plt Count (150-450) x10^3/uL MPV (7.5-11.0) fL Gran % (36.0-66.0) % Immature Gran % (Auto) (0.00-0.4) % Nucleat RBC Rel Count (0.00-0.1) % Eos # (Auto) (0-0.5) x10^3/uL Immature Gran # (Auto) (0.00-0.03) x10^3u/L Absolute Lymphs (auto) (1.0-4.6) x10^3/uL Absolute Monos (auto) (0.0-1.3) x10^3/uL Absolute Nucleated RBC (0.00-0.01) x10^3u/L Lymphocytes % (24.0-44.0) % Monocytes % (0.0-12.0) % Eosinophils % (0.00-5.0) % Basophils % (0.0-0.4) % Absolute Granulocytes (1.4-6.9) x10^3/uL Segmented Neutrophils (36.0-66.0) % Band Neutrophils (0.0-2.0) % Lymphocytes (Manual) (24-44) % Monocytes (Manual) (0.0-12.0) % Basophils # (0-0.4) x10^3/uL Toxic Granulation Dohle Bodies Platelet Estimate (NORMAL) RBC Morphology pO2/FiO2 Ratio % VBG pH (7.32-7.42) VBG pCO2 at Pat Temp (42-55) mm/Hg VBG pO2 at Pat Temp (25-40) mm/Hg VBG HCO3 (22-28) meq/L VBG O2 Sat (Jonathan) (95-100) VBG Base Excess (-2.0-2.0) VBG Hemoglobin VBG Carboxyhemoglobin (0.0-6.9) % T HGB POC Potassium (3.5-5.1) Sodium 134 L (137-145) mmol/L Potassium 4.0 (3.5-5.1) mmol/L Chloride 100 (98-107) mmol/L Carbon Dioxide 9 L* (22-30) mmol/L Anion Gap 29.0 H (5-15) MEQ/L BUN 47 H (7-17) mg/dL Creatinine 4.54 H (0.52-1.04) mg/dL Estimated GFR 10.6 ML/MIN Glucose 112 H (74-106) mg/dL POC Glucometer (74 to 106) mg/dL Lactic Acid (0.4-2.0) Calcium 9.5 (8.4-10.2) mg/dL Total Bilirubin 4.60 H (0.2-1.3) mg/dL AST 28 (14-36) U/L ALT 58 H (0-35) U/L Alkaline Phosphatase 294 H (38-126) U/L Serum Total Protein 8.2 (6.3-8.2) g/dL Albumin 3.3 L (3.5-5.0) g/dL Lipase (23-300) U/L Procalcitonin 66.800 H* (0.030-0.080) ng/mL Urinalys Dipstick Clnc Urine Color (YELLOW) Urine Appearance (CLEAR) Urine pH (5-6) Ur Specific [place] (1.005-1.025) POC Urine Protein Conf (Negative) Urine Ketones (NEGATIVE) Urine Nitrite (NEGATIVE) Urine Bilirubin (NEGATIVE) Urine Urobilinogen (0-1) mg/dL Urine Leukocytes (NEGATIVE) Urine WBC (Auto) (0-5) /HPF Urine RBC (Auto) (0-2) /HPF U Epithel Cells (Auto) (FEW) /HPF Urine Bacteria (Auto) (NEGATIVE) /HPF Urine RBC (0-5) Ulises/ul Urine Mucus (Auto) (NEGATIVE) /HPF Ur Culture Indicated? Urine Glucose (NEGATIVE) mg/dL Influenza Type A Ag NEGATIVE (NEGATIVE) Influenza Type B Ag NEGATIVE (NEGATIVE) RSV (PCR) NEGATIVE (Negative) SARS-CoV-2 (PCR) NEGATIVE (NEGATIVE) 10/25/22 10/25/22 10/25/22 Range/Units 18:27 18:18 18:11 WBC 16.9 H (4.0-10.5) x10^3/uL RBC 4.67 (4.1-5.4) x10^6/uL Hgb 15.2 (12.0-16.0) g/dL Hct 44.9 (35-47) % MCV 96.1 (78-100) fL MCH 32.5 H (26-32) pg MCHC 33.9 (32-36) g/dL RDW 15.8 H (11.5-14.0) % Plt Count 80 L (150-450) x10^3/uL MPV 11.8 H (7.5-11.0) fL Gran % (36.0-66.0) % Immature Gran % (Auto) (0.00-0.4) % Nucleat RBC Rel Count (0.00-0.1) % Eos # (Auto) (0-0.5) x10^3/uL Immature Gran # (Auto) (0.00-0.03) x10^3u/L Absolute Lymphs (auto) (1.0-4.6) x10^3/uL Absolute Monos (auto) (0.0-1.3) x10^3/uL Absolute Nucleated RBC (0.00-0.01) x10^3u/L Lymphocytes % (24.0-44.0) % Monocytes % (0.0-12.0) % Eosinophils % (0.00-5.0) % Basophils % (0.0-0.4) % Absolute Granulocytes (1.4-6.9) x10^3/uL Segmented Neutrophils 55 (36.0-66.0) % Band Neutrophils 31 H (0.0-2.0) % Lymphocytes (Manual) 7 L (24-44) % Monocytes (Manual) 7 (0.0-12.0) % Basophils # (0-0.4) x10^3/uL Toxic Granulation 1+ Dohle Bodies 1+ Platelet Estimate NORMAL (NORMAL) RBC Morphology NORMAL pO2/FiO2 Ratio 21.0 % VBG pH 7.25 L (7.32-7.42) VBG pCO2 at Pat Temp 23 L* (42-55) mm/Hg VBG pO2 at Pat Temp 52 H (25-40) mm/Hg VBG HCO3 10.1 L* (22-28) meq/L VBG O2 Sat (Jonathan) 83.7 L (95-100) VBG Base Excess -15.0 L (-2.0-2.0) VBG Hemoglobin 15.8 VBG Carboxyhemoglobin 2.3 (0.0-6.9) % T HGB POC Potassium 4.0 (3.5-5.1) Sodium (137-145) mmol/L Potassium (3.5-5.1) mmol/L Chloride (98-107) mmol/L Carbon Dioxide (22-30) mmol/L Anion Gap (5-15) MEQ/L BUN (7-17) mg/dL Creatinine (0.52-1.04) mg/dL Estimated GFR ML/MIN Glucose (74-106) mg/dL POC Glucometer 101 (74 to 106) mg/dL Lactic Acid (0.4-2.0) Calcium (8.4-10.2) mg/dL Total Bilirubin (0.2-1.3) mg/dL AST (14-36) U/L ALT (0-35) U/L Alkaline Phosphatase (38-126) U/L Serum Total Protein (6.3-8.2) g/dL Albumin (3.5-5.0) g/dL Lipase (23-300) U/L Procalcitonin (0.030-0.080) ng/mL Urinalys Dipstick Clnc Urine Color (YELLOW) Urine Appearance (CLEAR) Urine pH (5-6) Ur Specific [place] (1.005-1.025) POC Urine Protein Conf (Negative) Urine Ketones (NEGATIVE) Urine Nitrite (NEGATIVE) Urine Bilirubin (NEGATIVE) Urine Urobilinogen (0-1) mg/dL Urine Leukocytes (NEGATIVE) Urine WBC (Auto) (0-5) /HPF Urine RBC (Auto) (0-2) /HPF U Epithel Cells (Auto) (FEW) /HPF Urine Bacteria (Auto) (NEGATIVE) /HPF Urine RBC (0-5) Ulises/ul Urine Mucus (Auto) (NEGATIVE) /HPF Ur Culture Indicated? Urine Glucose (NEGATIVE) mg/dL Influenza Type A Ag (NEGATIVE) Influenza Type B Ag (NEGATIVE) RSV (PCR) (Negative) SARS-CoV-2 (PCR) (NEGATIVE) 10/25/22 10/25/22 10/25/22 Range/Units 18:08 18:00 17:55 WBC (4.0-10.5) x10^3/uL RBC (4.1-5.4) x10^6/uL Hgb (12.0-16.0) g/dL Hct (35-47) % MCV (78-100) fL MCH (26-32) pg MCHC (32-36) g/dL RDW (11.5-14.0) % Plt Count (150-450) x10^3/uL MPV (7.5-11.0) fL Gran % (36.0-66.0) % Immature Gran % (Auto) (0.00-0.4) % Nucleat RBC Rel Count (0.00-0.1) % Eos # (Auto) (0-0.5) x10^3/uL Immature Gran # (Auto) (0.00-0.03) x10^3u/L Absolute Lymphs (auto) (1.0-4.6) x10^3/uL Absolute Monos (auto) (0.0-1.3) x10^3/uL Absolute Nucleated RBC (0.00-0.01) x10^3u/L Lymphocytes % (24.0-44.0) % Monocytes % (0.0-12.0) % Eosinophils % (0.00-5.0) % Basophils % (0.0-0.4) % Absolute Granulocytes (1.4-6.9) x10^3/uL Segmented Neutrophils (36.0-66.0) % Band Neutrophils (0.0-2.0) % Lymphocytes (Manual) (24-44) % Monocytes (Manual) (0.0-12.0) % Basophils # (0-0.4) x10^3/uL Toxic Granulation Dohle Bodies Platelet Estimate (NORMAL) RBC Morphology pO2/FiO2 Ratio % VBG pH (7.32-7.42) VBG pCO2 at Pat Temp (42-55) mm/Hg VBG pO2 at Pat Temp (25-40) mm/Hg VBG HCO3 (22-28) meq/L VBG O2 Sat (Jonathan) (95-100) VBG Base Excess (-2.0-2.0) VBG Hemoglobin VBG Carboxyhemoglobin (0.0-6.9) % T HGB POC Potassium (3.5-5.1) Sodium (137-145) mmol/L Potassium (3.5-5.1) mmol/L Chloride (98-107) mmol/L Carbon Dioxide (22-30) mmol/L Anion Gap (5-15) MEQ/L BUN (7-17) mg/dL Creatinine (0.52-1.04) mg/dL Estimated GFR ML/MIN Glucose (74-106) mg/dL POC Glucometer (74 to 106) mg/dL Lactic Acid 11.6 H (0.4-2.0) Calcium (8.4-10.2) mg/dL Total Bilirubin (0.2-1.3) mg/dL AST (14-36) U/L ALT (0-35) U/L Alkaline Phosphatase (38-126) U/L Serum Total Protein (6.3-8.2) g/dL Albumin (3.5-5.0) g/dL Lipase 125 (23-300) U/L Procalcitonin (0.030-0.080) ng/mL Urinalys Dipstick Clnc MAIN LAB Urine Color BROWN A (YELLOW) Urine Appearance TURBID (CLEAR) Urine pH 5.0 (5-6) Ur Specific [place] 1.025 (1.005-1.025) POC Urine Protein Conf >=300 A (Negative) Urine Ketones SMALL-15 A (NEGATIVE) Urine Nitrite NEGATIVE (NEGATIVE) Urine Bilirubin LARGE A (NEGATIVE) Urine Urobilinogen 2 A (0-1) mg/dL Urine Leukocytes LARGE A (NEGATIVE) Urine WBC (Auto) 51-100 A (0-5) /HPF Urine RBC (Auto) >101 A (0-2) /HPF U Epithel Cells (Auto) FEW (FEW) /HPF Urine Bacteria (Auto) FEW A (NEGATIVE) /HPF Urine RBC LARGE A (0-5) Ulises/ul Urine Mucus (Auto) SLIGHT A (NEGATIVE) /HPF Ur Culture Indicated? YES Urine Glucose NEGATIVE (NEGATIVE) mg/dL Influenza Type A Ag (NEGATIVE) Influenza Type B Ag (NEGATIVE) RSV (PCR) (Negative) SARS-CoV-2 (PCR) (NEGATIVE) - Progress Progress: re-examined Air Movement: good Progress Note: 10/25/22 22:45 57-year-old is evaluated for hematuria. Patient was tachycardic on presentation, given fluid bolus. Work-up showed white count of 16.9, lactate of 11 and procalcitonin of 66. She is given a dose of Zosyn. Chemistry profile showed acute renal failure with a baseline creatinine of 1.0 and today 4.5 with low bicarb of 9. VBG showed venous pH of 7.2. I have obtained CT abdomen pelvis without contrast which showed some element of enterocolitis and patient does admit having diarrhea a few days ago. Patient is given fluid bolus per sepsis protocol but still blood pressure is borderline and often drops below 90 systolic. I have placed central line. I have called Dr. Hamilton who recommended transfer to facility with a higher level of care. I have discussed with [place], patient is placed on the list of admission but no beds are available currently. [facility] currently no beds available. 10/25/22 22:[address] Cr at ICU [facility], reviewed history, work-up, recommended giving another bolus of 500 LR and adding p.o. and IV vancomycin with her recent history of antibiotic intake and diarrhea. Patient is accepted for transfer. Plan discussed with patient who understand and agrees with it. She is also started on Levophed because her pressure is still in mid 80s. 10/26/22 06:42 And is feeling somewhat better. Still has blood pressure in 90s despite being on Levophed. Repeat labs shows mild improvement in her renal functions. Still has low bicarb, she is given an ampule of bicarb. Waiting on transportation for transfer. No air in ground transportation is available despite calling them multiple times at multiple places. Keep working on it. At this point care is transferred to Dr. Nicholas at shift change. Blood Culture(s) Obtained: Yes Antibiotics given: Yes Discussed with : Akanksha, Other Counseled pt/family regarding: lab results, diagnosis, rad results - Departure Departure Disposition: Transfer Clinical Impression: Sepsis due to urinary tract infection, Septic shock, Enterocolitis, Acute renal failure, Dehydration Condition: Serious Critical Care Time: Yes Critical Care Time(excluding separately billable procedures): Critical 75-104 mins Referrals: FRANK CALVILLO [Primary Care Provider] - Follow up/PCP as directed
[2022-10-25] MEDS ORDERED: PIPERACILLIN/TAZOBACTAM IV ONE (19:09)
[2022-10-25] MEDS ORDERED: Sodium Chloride 100ML MINI-BAG PLUS 100 ML IV ONE (19:09)
[2022-10-25 19:14] LABS: INFLUENZA A NEGATIVE (NEGATIVE); INFLUENZA B NEGATIVE (NEGATIVE); RESPIRATORY SYNCTIAL VIRUS NEGATIVE (Negative); SARS-CoV-2 Xpert Express NEGATIVE (NEGATIVE)
[2022-10-25] MEDS: Sodium Chloride 0.9% 1000 ML 1,000 ML IV SCH (19:21)
[2022-10-25 20:43] LABS: BAND 31 % (0.0-2.0); Dohle Bodies 1+; Lymphocytes 7 % (24-44); Monocyte 7 % (0.0-12.0); Total Cells Counted 100; Toxic Granulation 1+
[2022-10-25 20:44] LABS: Platelet Estimate NORMAL (NORMAL)
--- NOTE | 2022-10-25 21:18 | XRAY ---
Indication: Hematuria and weakness 2 weeks. Multiple contiguous axial images obtained through the abdomen and pelvis without contrast. Comparison: June 17, 2022 Study is now slightly degraded by respiration artifact throughout. Lung bases now demonstrates moderate subsegmental atelectasis/scarring and tiny left effusion. Heart remains borderline enlarged. Noncontrasted stomach and bowel loops appear nonobstructed. New mild fluid distended small bowel and ascending colon with wall thickening favoring enterocolitis. New tiny pelvic free fluid may be related. Again abnormally distended gallbladder with increasing gallstones, largest again 1.7 cm. Liver remains enlarged measuring 19.7 cm with pericholecystic fluid. No walled off fluid collection or free air. Spleen remains enlarged measuring 13.6 cm. Remaining liver, pancreas, adrenal glands, kidneys, ureters, ureters, and uterus are unremarkable for noncontrast exam. Again mild aortoiliac calcifications without AAA. Osseous structures intact. Impression: 1. Respiration artifact. 2. Again borderline cardiomegaly with new tiny left effusion. Mild or early cardiac decompensation/CHF not completely excluded. 3. New fluid distended small bowel and right hemicolon favoring enterocolitis. New tiny pelvic free fluid presumed reactive. 4. Again abnormal distended gallbladder with cholelithiasis and tiny perihepatic fluid. Cholecystitis not completely excluded. Again sonogram may yield further information if clinically warranted. 5. Again hepatosplenomegaly. Comment: Preliminary interpretation made by [facility]. No critical discrepancy. Comment: Preliminary interpretation made by [facility]. No critical discrepancy.
[2022-10-25 21:41] LABS: ANION GAP 22.4 MEQ/L (5-15); Calcium 8.2 mg/dL (8.4-10.2); Creatinine 1 4.09 mg/dL (0.52-1.04); Potassium 3.7 mmol/L (3.5-5.1)
[2022-10-25] MEDS ORDERED: NOREPINEPHRINE 8 MG/250 ML-D5W 8 MG/250 ML PLAST..BAG IV ONE (22:45)
[2022-10-25] MEDS ORDERED: NOREPINEPHRINE 8 MG/250 ML-D5W 8 MG/250 ML PLAST..BAG IV PRN (22:48)
[2022-10-25] MEDS ORDERED: VANCOMYCIN HCL CAPSULE PO STA (22:54)
[2022-10-25] MEDS ORDERED: VANCOMYCIN 1 GRAM/200 ML BAG 1 GM/200 ML PIGGYBACK IV ONE ×2 (22:56→23:12)
[2022-10-25] MEDS ORDERED: Lactated Ringers 1,000 ML IV ONE (23:38)
[2022-10-25] MEDS: Lactated Ringers 1,000 ML IV SCH (23:39)
[2022-10-26] MEDS ORDERED: Piperacillin/Tazobactam 2.25 GM 2.25 GM in Sodium Chloride 100ML MINI-BAG PLUS 100 ML IV ONE (05:01)
[2022-10-26 05:42] LABS: Basophil (Absolute #) 0.14 x10^3/uL (0-0.4); Eosinophil % 26.3 % (0.00-5.0); Eosinophil (Absolute #) 4.21 x10^3/uL (0-0.5); Hematocrit 41.8 % (35-47); Hemoglobin 14.1 g/dL (12.0-16.0); Lymphocyte (Absolute #) 1.06 x10^3/uL (1.0-4.6); Lymphocytes % 6.6 % (24.0-44.0); Mean Corpuscular Hemoglobin 32.7 pg (26-32); Mean Corpuscular Hgb Concent. 33.7 g/dL (32-36); Mean Platelet Volume 11.8 fL (7.5-11.0); Monocyte (Absolute #) 2.17 x10^3/uL (0.0-1.3); Monocytes % 13.5 % (0.0-12.0); Platelet Count 69 x10^3/uL (150-450); Red Blood Count 4.31 x10^6/uL (4.1-5.4); Red Cell Distribution Width 16.2 % (11.5-14.0)
[2022-10-26] MEDS ORDERED: Sodium Chloride 0.9% 1000 ML 1,000 ML IV SCH (05:45)
[2022-10-26 06:02] LABS: ALBUMIN 2.7 g/dL (3.5-5.0); ANION GAP 22.8 MEQ/L (5-15); BILIRUBIN,TOTAL 4.8 mg/dL (0.2-1.3); Calcium 8.4 mg/dL (8.4-10.2); Creatinine 1 3.63 mg/dL (0.52-1.04); EST GLOMERULAR FILTRATION RATE 13.7 ML/MIN; Potassium 3.5 mmol/L (3.5-5.1); Total Protein 6.9 g/dL (6.3-8.2)
[2022-10-26] MEDS ORDERED: SODIUM BICARBONATE 50 MEQ/50 ML ABBOJECT IV ONE ×2 (06:14→06:21)
[2022-10-26] MEDS ORDERED: VANCOCIN INJECTION*** 1 GM in Sodium Chloride 0.9% 250 ML 250 ML IV SCH (07:00)
[2022-10-26] MEDS: Lactated Ringers 1,000 ML IV SCH (07:26)
[2022-10-26 07:56] LABS: 027 TOX PROD PRESUMPTIVE NEGATIVE (NEGATIVE); TOXIGENIC C. DIFF ORG NEGATIVE (NEGATIVE)
[2022-10-26] MEDS ORDERED: VANCOMYCIN HCL CAPSULE PO SCH (08:00)
[2022-10-26 10:34] VITALS: O2SAT 98
[2022-10-26] MEDS: Sodium Chloride 0.9% 1000 ML 1,000 ML IV SCH (10:36)
[2022-10-26 10:49] VITALS: BP 105/65; PULSE 127
[2022-10-26 15:39] LABS: BAND 5 % (0.0-2.0); Lymphocytes 16 % (24-44); Monocyte 15 % (0.0-12.0); Total Cells Counted 100
[2022-10-26 15:40] LABS: Platelet Estimate NORMAL (NORMAL)
== END 2022-10-26 11:15 | disposition short-term general hospital (02) ==
LOC: ED 17:27
DX: A41.9 Sepsis, unspecified organism (principal); N39.0 Urinary tract infection, site not specified; R65.21 Severe sepsis with septic shock; N17.9 Acute kidney failure, unspecified; K52.9 Noninfective gastroenteritis and colitis, unspecified; E86.0 Dehydration; R31.9 Hematuria, unspecified; R35.0 Frequency of micturition; R30.0 Dysuria; R53.1 Weakness; R00.0 Tachycardia, unspecified; I10 Essential (primary) hypertension; E11.9 Type 2 diabetes mellitus without complications; Z79.84 Long term (current) use of oral hypoglycemic drugs
CPT/HCPCS: 0241U; 36000; 36415; 36556; 51702; 74176; 80048; 80053; 81015; 82805; 82947; 83605; 83690; 84145; 85025; 87040; 87077; 87086; 87186; 87493; 96360; 96361; 96365; 96367; 99285; 99291; 99292; 96375; J2543; J3370

== ENCOUNTER 2022-11-10 10:44 | Observation (INO) | payer OTHER ==
--- NOTE | 2022-11-10 11:34 | ERPHSYRPT ---
- History of Present Illness Time Seen by Provider: 11/10/22 11:30 Source: patient Exam Limitations: no limitations Patient Subjective Stated Complaint: pt here for swelling to abd and lower legs for a week now, and lower back pain, no injury, pt was seen here 10/25 and sent to [facility] for urosepsis.pt has not had seen any one since DC to home Triage Nursing Assessment: pt alert,walked in holding back, skin warm and dry, face mask in place, abd large distended, lower legs with swelling, states short of breath at times Physician History: Patient a 57-year-old female presents to emergency department for evaluation of distended abdomen and lower extremity swelling. Patient has history of liver disease. Patient was in our ED approximately 3 weeks ago for urosepsis. 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 Patient symptoms are slowly progressive. No fever. No abdominal pain. No chest pain or shortness of breath. No nausea vomiting or diaphoresis. Symptoms are mild to moderate in intensity. No specific worsening improving factors. Patient voices no other complaints or concerns at this time. Portions of this note were created with voice recognition technology. There may be grammatical, spelling, punctuation or sound alike errors Timing/Duration: week(s) (Restive over the past week) Severity: moderate Modifying Factors: Improves With: nothing Associated Symptoms: No nausea, No vomiting, No abdominal pain, No shortness of breath, No cough, No fever, No syncope, No seizure, No weakness Allergies/Adverse Reactions: Iodinated Contrast Media Allergy (Mild, Verified 11/10/22 10:50) Itching iv contrast on 06-17-22 made patient itch. Home Medications: Losartan Potassium 100 mg PO DAILY 10/25/22 [History] Lactulose [Constulose] 10 gm PO DAILY 11/10/22 [History] Metformin HCl 850 mg [Glucophage 850 MG] 850 mg PO BID 11/10/22 [History] Metoprolol Tartrate 25 mg [Lopressor 25MG Tab] 25 mg PO DAILY 11/10/22 [History] Hx Tetanus, Diphtheria Vaccination/Date Given: No Hx Influenza Vaccination/Date Given: No Hx Pneumococcal Vaccination/Date Given: No Immunizations Up to Date: Yes Travel Risk - International Travel Have you traveled outside of the country in past 3 weeks: No - Coronavirus Screening Are you exhibiting any of the following symptoms?: No Close contact with a COVID-19 positive Pt in past 14-21 Days: No - Vaccine Status Have you recieved a Covid-19 vaccination: Yes Oral And Maxillofacial Surgery: Unknown - Vaccination Dates Date of 2cond Vaccination (if applicable): 2020 Dates if Unknown: ? - Review of Systems Constitutional: No Symptoms, No Fever, No Chills Eyes: No Symptoms Ears, Nose, & Throat: No Symptoms Respiratory: No Symptoms, No Cough, No Dyspnea Cardiac: No Symptoms, No Chest Pain, No Edema, No Syncope Abdominal/Gastrointestinal: No Symptoms, No Abdominal Pain, No Nausea, No V omiting, No Diarrhea Genitourinary Symptoms: No Symptoms, No Dysuria Musculoskeletal: No Symptoms, No Back Pain, No Neck Pain Skin: No Symptoms, No Rash Neurological: No Symptoms, No Dizziness, No Focal Weakness, No Sensory Changes Psychological: No Symptoms Endocrine: No Symptoms Hematologic/Lymphatic: No Symptoms Immunological/Allergic: No Symptoms All Other Systems: Reviewed and Negative - Past Medical History Pertinent Past Medical History: No Neurological History: No Pertinent History ENT History: No Pertinent History Cardiac History: No Pertinent History Respiratory History: No Pertinent History Endocrine Medical History: No Pertinent History Musculoskeletal History: No Pertinent History GI Medical History: No Pertinent History History: No Pertinent History Psycho-Social History: No Pertinent History Female Reproductive Disorders: No Pertinent History - Past Surgical History Past Surgical History: No - Social History Smoking Status: Never smoker Exposure to second hand smoke: No Drug Use: none Patient Lives Alone: No - Nursing Vital Signs Nursing Vital Signs: Initial Vital Signs Temperature 97.2 F 11/10/22 11:02 Pulse Rate 95 H 11/10/22 11:02 Respiratory Rate 14 11/10/22 11:02 Blood Pressure 191/100 11/10/22 11:02 O2 Sat by Pulse Oximetry 100 11/10/22 11:02 Pain Scale Pain Intensity [Back] 6 Pain Intensity 4 - Physical Exam General Appearance: no apparent distress, alert Eye Exam: PERRL/EOMI, eyes nml inspection Ears, Nose, Throat Exam: normal ENT inspection, TMs normal, pharynx normal, moist mucous membranes Neck Exam: normal inspection, non-tender, supple, full range of motion Respiratory Exam: normal breath sounds, lungs clear, airway intact, No respiratory distress Cardiovascular Exam: regular rate/rhythm, normal heart sounds, normal peripheral pulses Gastrointestinal/Abdomen Exam: soft, normal bowel sounds, other (Distended abdomen. Fluid wave. Ascites), No tenderness, No mass Rectal Exam: No deferred Back Exam: normal inspection, normal range of motion, No CVA tenderness, No vertebral tenderness Extremity Exam: normal inspection, normal range of motion, pelvis stable, pedal edema, other (3+ pitting edema bilateral lower extremity.) Neurologic Exam: alert, oriented x 3, cooperative, normal mood/affect, nml c erebellar function, nml station & gait, sensation nml, No motor deficits Skin Exam: normal color, warm, dry, No rash Lymphatic Exam: No adenopathy SpO2 Interpretation: normal SpO2: 100 O2 Delivery: Room Air - Course Nursing assessment & vital signs reviewed: Yes EKG Interpreted by Me: RATE ([id number]), Sinus Rhythm, NORMAL AXIS, NORMAL INTERVALS Ordered Tests: Active Orders 24 hr Category Date Time Status EKG-ER Only STAT Care 11/10/22 14:52 Active IV Insertion STAT Care 11/10/22 12:36 Active ABDOMEN AND PELVIS W/0 CONTRAS [CT] Stat Exams 11/10/22 12:37 Completed CBC W DIFF Stat Lab 11/10/22 13:15 Completed CMP Stat Lab 11/10/22 13:15 Completed LIPASE Stat Lab 11/10/22 13:15 Completed NT PRO BNP Stat Lab 11/10/22 13:15 Completed TROPONIN Q4H Lab 11/10/22 13:15 Completed TROPONIN Q4H Lab 11/10/22 19:00 Ordered TROPONIN Q4H Lab 11/10/22 23:00 Ordered UA W/RFX CULTURE Stat Lab 11/10/22 12:50 Results Lab/Rad Data: Laboratory Result Diagrams 11/10/22 13:15 11/10/22 13:15 Laboratory Results 11/10/22 11/10/22 11/10/22 Range/Units 16:00 13:15 13:15 WBC (4.0-10.5) x10^3/uL RBC (4.1-5.4) x10^6/uL Hgb (12.0-16.0) g/dL Hct (35-47) % MCV (78-100) fL MCH (26-32) pg MCHC (32-36) g/dL RDW (11.5-14.0) % Plt Count (150-450) x10^3/uL MPV (7.5-11.0) fL Gran % (36.0-66.0) % Immature Gran % (Auto) (0.00-0.4) % Nucleat RBC Rel Count (0.00-0.1) % Eos # (Auto) (0-0.5) x10^3/uL Immature Gran # (Auto) (0.00-0.03) x10^3u/L Absolute Lymphs (auto) (1.0-4.6) x10^3/uL Absolute Monos (auto) (0.0-1.3) x10^3/uL Absolute Nucleated RBC (0.00-0.01) x10^3u/L Lymphocytes % (24.0-44.0) % Monocytes % (0.0-12.0) % Eosinophils % (0.00-5.0) % Basophils % (0.0-0.4) % Absolute Granulocytes (1.4-6.9) x10^3/uL Basophils # (0-0.4) x10^3/uL Sodium 136 L (137-145) mmol/L Potassium 4.2 (3.5-5.1) mmol/L Chloride 108 H (98-107) mmol/L Carbon Dioxide 21 L (22-30) mmol/L Anion Gap 11.2 (5-15) MEQ/L BUN 10 (7-17) mg/dL Creatinine 1.15 H (0.52-1.04) mg/dL Estimated GFR 51.7 ML/MIN Glucose 99 (74-106) mg/dL Calcium 9.0 (8.4-10.2) mg/dL Total Bilirubin 2.70 H (0.2-1.3) mg/dL AST 55 H (14-36) U/L ALT 33 (0-35) U/L Alkaline Phosphatase 141 H (38-126) U/L Troponin I < 0.012 (0.000-0.034) ng/mL NT-Pro-B Natriuret Pep 426 (0-900) pg/mL Serum Total Protein 8.0 (6.3-8.2) g/dL Albumin 2.7 L (3.5-5.0) g/dL Lipase 317 H (23-300) U/L Urinalys Dipstick Clnc Urine Color (YELLOW) Urine Appearance (CLEAR) Urine pH (5-6) Ur Specific [place] (1.005-1.025) POC Urine Protein Conf (Negative) Urine Ketones (NEGATIVE) Urine Nitrite (NEGATIVE) Urine Bilirubin (NEGATIVE) Urine Urobilinogen (0-1) mg/dL Urine Leukocytes (NEGATIVE) Urine WBC (Auto) Urine RBC (Auto) U Epithel Cells (Auto) Urine Bacteria (Auto) Urine RBC (0-5) Ulises/ul Urine Mucus (Auto) Ur Culture Indicated? Urine Glucose (NEGATIVE) mg/dL Influenza Type A Ag NEGATIVE (NEGATIVE) Influenza Type B Ag NEGATIVE (NEGATIVE) RSV (PCR) NEGATIVE (Negative) SARS-CoV-2 (PCR) NEGATIVE (NEGATIVE) 11/10/22 11/10/22 Range/Units 13:15 12:50 WBC 8.2 (4.0-10.5) x10^3/uL RBC 3.14 L (4.1-5.4) x10^6/uL Hgb 10.5 L (12.0-16.0) g/dL Hct 32.1 L (35-47) % MCV 102.2 H (78-100) fL MCH 33.4 H (26-32) pg MCHC 32.7 (32-36) g/dL RDW 18.0 H (11.5-14.0) % Plt Count 164 (150-450) x10^3/uL MPV 8.7 (7.5-11.0) fL Gran % 61.2 (36.0-66.0) % Immature Gran % (Auto) 0.4 (0.00-0.4) % Nucleat RBC Rel Count 0.0 (0.00-0.1) % Eos # (Auto) 0.07 (0-0.5) x10^3/uL Immature Gran # (Auto) 0.03 (0.00-0.03) x10^3u/L Absolute Lymphs (auto) 2.45 (1.0-4.6) x10^3/uL Absolute Monos (auto) 0.53 (0.0-1.3) x10^3/uL Absolute Nucleated RBC 0.00 (0.00-0.01) x10^3u/L Lymphocytes % 29.7 (24.0-44.0) % Monocytes % 6.4 (0.0-12.0) % Eosinophils % 0.8 (0.00-5.0) % Basophils % 1.5 (0.0-0.4) % Absolute Granulocytes 5.04 (1.4-6.9) x10^3/uL Basophils # 0.12 (0-0.4) x10^3/uL Sodium (137-145) mmol/L Potassium (3.5-5.1) mmol/L Chloride (98-107) mmol/L Carbon Dioxide (22-30) mmol/L Anion Gap (5-15) MEQ/L BUN (7-17) mg/dL Creatinine (0.52-1.04) mg/dL Estimated GFR ML/MIN Glucose (74-106) mg/dL Calcium (8.4-10.2) mg/dL Total Bilirubin (0.2-1.3) mg/dL AST (14-36) U/L ALT (0-35) U/L Alkaline Phosphatase (38-126) U/L Troponin I (0.000-0.034) ng/mL NT-Pro-B Natriuret Pep (0-900) pg/mL Serum Total Protein (6.3-8.2) g/dL Albumin (3.5-5.0) g/dL Lipase (23-300) U/L Urinalys Dipstick Clnc MAIN LAB Urine Color YELLOW (YELLOW) Urine Appearance SLIGHTLY (CLEAR) Urine pH 5.5 (5-6) Ur Specific [place] >=1.030 A (1.005-1.025) POC Urine Protein Conf TRACE A (Negative) Urine Ketones NEGATIVE (NEGATIVE) Urine Nitrite NEGATIVE (NEGATIVE) Urine Bilirubin NEGATIVE (NEGATIVE) Urine Urobilinogen 0.2 (0-1) mg/dL Urine Leukocytes NEGATIVE (NEGATIVE) Urine WBC (Auto) Pending Urine RBC (Auto) Pending U Epithel Cells (Auto) Pending Urine Bacteria (Auto) Pending Urine RBC MODERATE A (0-5) Ulises/ul Urine Mucus (Auto) Pending Ur Culture Indicated? Pending Urine Glucose NEGATIVE (NEGATIVE) mg/dL Influenza Type A Ag (NEGATIVE) Influenza Type B Ag (NEGATIVE) RSV (PCR) (Negative) SARS-CoV-2 (PCR) (NEGATIVE) - Progress Progress: improved Progress Note: Patient reassessed. She feels better. Patient has large ascitic fluid that will need to be drained. Case discussed with Dr. Quiroz who accepts admission to observation. Plan of care discussed with patient. She agrees to admission [facility] for further evaluation and treatment. COVID test negative. Portions of this note were created with voice recognition technology. There may be grammatical, spelling, punctuation or sound alike errors 11/10/22 16:55 Counseled pt/family regarding: lab results, diagnosis, rad results - Departure Departure Disposition: Home Clinical Impression: Megaloblastic anemia, Elevated lipase, Cardiomegaly, Leg swelling, Liver ci rrhosis, Ascites, Splenomegaly, GALLBLADDER DISTENTION, Cholelithiasis, Back pain, Congestive heart failure Condition: Stable Critical Care Time: No Referrals: FRANK CALVILLO [Primary Care Provider] - Follow up/PCP as directed Instructions: Heart Failure
[2022-11-10 13:04] LABS: Appearance SLIGHTLY (CLEAR); Bilirubin NEGATIVE (NEGATIVE); Dipstick done @ ? MAIN LAB; Glucose NEGATIVE (NEGATIVE); Ketones NEGATIVE (NEGATIVE); Nitrite NEGATIVE (NEGATIVE); Ph 5.5 (5-6); Protein,Urine Dip TRACE (Negative); RBC MODERATE Ery/ul (0-5); Specific Gravity >=1.030 (1.005-1.025); Urobilinogen 0.2 mg/dL (0-1)
[2022-11-10 13:05] LABS: Bacteria RARE /HPF (NEGATIVE); Epithelial Cells RARE /HPF (FEW); Mucus SLIGHT /HPF (NEGATIVE)
[2022-11-10 13:06] LABS: Urine Cultured Indicated? YES
[2022-11-10 13:14] LABS: Absolute Neutrophil Ct (ANC) 5.04 x10^3/uL (1.4-6.9); Basophil (Absolute #) 0.12 x10^3/uL (0-0.4); Eosinophil % 0.8 % (0.00-5.0); Eosinophil (Absolute #) 0.07 x10^3/uL (0-0.5); Hematocrit 32.1 % (35-47); Hemoglobin 10.5 g/dL (12.0-16.0); Lymphocyte (Absolute #) 2.45 x10^3/uL (1.0-4.6); Lymphocytes % 29.7 % (24.0-44.0); Mean Cell Volume 102.2 fL (78-100); Mean Corpuscular Hemoglobin 33.4 pg (26-32); Mean Corpuscular Hgb Concent. 32.7 g/dL (32-36); Mean Platelet Volume 8.7 fL (7.5-11.0); Monocyte (Absolute #) 0.53 x10^3/uL (0.0-1.3); Monocytes % 6.4 % (0.0-12.0); Neutrophil % 61.2 % (36.0-66.0); Platelet Count 164 x10^3/uL (150-450); Red Blood Count 3.14 x10^6/uL (4.1-5.4); White Blood Count 8.2 x10^3/uL (4.0-10.5)
[2022-11-10 13:30] LABS: ALBUMIN 2.7 g/dL (3.5-5.0); ANION GAP 11.2 MEQ/L (5-15); BILIRUBIN,TOTAL 2.7 mg/dL (0.2-1.3); Creatinine 1 1.15 mg/dL (0.52-1.04); EST GLOMERULAR FILTRATION RATE 51.7 ML/MIN; Potassium 4.2 mmol/L (3.5-5.1)
--- NOTE | 2022-11-10 13:30 | XRAY ---
Indication: Abdomen pain, distention, weakness. Multiple contiguous axial images obtained through the abdomen and pelvis without contrast. Comparison: October 25, 2022 Lung bases again demonstrates borderline cardiomegaly with worsening small bibasilar effusions again concerning for cardiac decompensation/CHF. Noncontrasted stomach and bowel loops nonobstructed. There is a cirrhotic liver with now moderate diffuse abdomen/pelvic ascites. No free air. Again distended gallbladder with gallstones again largest 1.7 cm. Spleen remains enlarged measuring 13.4 cm. Remaining pancreas, adrenal glands, kidneys, ureters, bladder, and uterus are unremarkable for noncontrast exam. Again mild aortoiliac calcifications without AAA. Impression: 1. Again borderline cardiomegaly with worsening bibasilar effusions. Again rule out cardiac decompensation/CHF. 2. Cirrhotic appearing liver with increasing moderate abdomen/pelvic ascites. 3. Again abnormal distended gallbladder with cholelithiasis.
[2022-11-10 15:19] LABS: NT PRO BNP 426 pg/mL (0-900); TROPONIN < 0.012 ng/mL (0.000-0.034)
[2022-11-10 16:43] LABS: INFLUENZA A NEGATIVE (NEGATIVE); INFLUENZA B NEGATIVE (NEGATIVE); RESPIRATORY SYNCTIAL VIRUS NEGATIVE (Negative); SARS-CoV-2 Xpert Express NEGATIVE (NEGATIVE)
[2022-11-10] MEDS ORDERED: Zofran 4 MG/2 ML VIAL IV PRN (16:52)
[2022-11-10] MEDS: MORPHINE SULFATE 2 MG INJ IV PRN (18:01)
[2022-11-10 19:14] LABS: INR 1.36 (0.8-3.0); PTT 33.9 SECONDS (25.1-36.5)
[2022-11-10] MEDS: Glucotrol 5 MG PO SCH (22:06)
[2022-11-10] MEDS: Lopressor 25MG Tab PO SCH (22:06)
[2022-11-10] MEDS: Glucophage 850 MG PO SCH (22:10)
[2022-11-11] MEDS: MORPHINE SULFATE 2 MG INJ IV PRN ×3 (04:47→16:18)
[2022-11-11 05:46] LABS: Absolute Neutrophil Ct (ANC) 4.99 x10^3/uL (1.4-6.9); Basophil (Absolute #) 0.11 x10^3/uL (0-0.4); Eosinophil % 1.8 % (0.00-5.0); Eosinophil (Absolute #) 0.18 x10^3/uL (0-0.5); Hematocrit 32.4 % (35-47); Hemoglobin 10.3 g/dL (12.0-16.0); Lymphocyte (Absolute #) 3.94 x10^3/uL (1.0-4.6); Lymphocytes % 39.4 % (24.0-44.0); Mean Cell Volume 102.2 fL (78-100); Mean Corpuscular Hemoglobin 32.5 pg (26-32); Mean Corpuscular Hgb Concent. 31.8 g/dL (32-36); Mean Platelet Volume 8.8 fL (7.5-11.0); Monocyte (Absolute #) 0.77 x10^3/uL (0.0-1.3); Monocytes % 7.7 % (0.0-12.0); Neutrophil % 49.8 % (36.0-66.0); Platelet Count 188 x10^3/uL (150-450); Red Blood Count 3.17 x10^6/uL (4.1-5.4)
[2022-11-11 06:12] LABS: ALBUMIN 2.6 g/dL (3.5-5.0); ANION GAP 9.4 MEQ/L (5-15); BILIRUBIN,TOTAL 2.4 mg/dL (0.2-1.3); Calcium 8.9 mg/dL (8.4-10.2); Creatinine 1 1.14 mg/dL (0.52-1.04); EST GLOMERULAR FILTRATION RATE 52.2 ML/MIN; Potassium 3.7 mmol/L (3.5-5.1)
[2022-11-11] MEDS ORDERED: LACTULOSE 20 GM/30ML UD CUP PO PRN (07:07)
[2022-11-11] MEDS: Glucophage 850 MG PO SCH ×2 (09:56→17:50)
[2022-11-11] MEDS: Glucotrol 5 MG PO SCH ×2 (09:56→17:50)
[2022-11-11] MEDS: Lopressor 25MG Tab PO SCH ×2 (10:39→21:24)
--- NOTE | 2022-11-11 13:15 | PCM.HP ---
History of Present Illness - Chief Complaint Chief Complaint: Liver failure w/ascites History of Present Illness: is a 57 year old female patient of Dr Do who presented to ER with swelling of abdomen and legs. C/O discomfort and some shortness of breath from the distended abdomen,denies fever or change in appetite,no N/V,no chest pain. CT abd and pelvis shows distended gall bladder with stones ,cirrhotic liver with moderate ascites and cardiomegaly with bibasilar effusions. Patient is admittted for diagnostic and therapeutic peritoneal tap and workup. Patient was in [facility] ER 10/25/22 transfered to [facility] for Urosepsis and has not followed up for this. - Review of Systems Constitutional: Fatigue Eyes: Other (color change/jaundice) Ears, Nose, & Throat: No Symptoms Respiratory: Short Of Breath Cardiac: No Symptoms Abdominal/Gastrointestinal: Other (swelling of abdomen) Genitourinary Symptoms: Other (recent Urosepsis) Musculoskeletal: Back Pain (LBP) Skin: No Symptoms Neurological: No Symptoms Psychological: No Symptoms Endocrine: No Symptoms, Other (on oral meds for DM2) Hematologic/Lymphatic: Anemia Medications & Allergies Home Medications: Home Medication List Cefpodoxime Proxetil 200 mg [Vantin 200 mg] 200 mg PO BID 11/10/22 [History Confirmed 11/10/22] Glipizide 5 mg [Glucotrol 5 MG] 5 mg PO BIDWM 11/10/22 [History Confirmed 11/10/22] Lactulose [Constulose] 10 gm PO BID PRN PRN 11/10/22 [History Confirmed 11/10/22] Metformin HCl 850 mg [Glucophage 850 MG] 850 mg PO BID 11/10/22 [History Confirmed 11/10/22] Metoprolol Tartrate 25 mg [Lopressor 25MG Tab] 12.5 mg PO BID 11/10/22 [History Confirmed 11/10/22] Allergies/Adverse Reactions: Allergies Allergy/AdvReac Type Severity Reaction Status Date / Time NKA Allergy Verified 11/10/22 18:11 - Past Medical History Past Medical History: No Neurological History: No Pertinent History ENT History: No Pertinent History Cardiac History: No Pertinent History Respiratory History: No Pertinent History Endocrine Medical History: No Pertinent History, Diabetes Type II Musculoskelatal History: No Pertinent History GI Medical History: No Pertinent History History: No Pertinent History Pyscho-Social History: No Pertinent History Reproductive Disorders: No Pertinent History - Female History Are you now?: No - Past Surgical History Past Surgical History: No Cardiac History: No Pertinent History Respiratory Surgery: No Pertinent History GI Surgical History: Appendectomy Genitourinary Surgical Hx: No Pertinent History Musculskeletal Surgical Hx: No Pertinent History Female Surgical History: No Pertinent History - Social History Smoking Status: Never smoker Exposure to second hand smoke: No Alcohol: None Drug Use: none - Physical Exam Vital Signs: Vital Signs - 24 hr Temp Pulse Resp BP Pulse Ox 11/11/22 11:52 97.5 F 75 19 164/79 98 11/11/22 07:38 98.6 F 70 18 144/69 97 11/11/22 04:00 97.5 F 66 17 146/78 95 11/10/22 23:35 98.4 F 79 16 130/64 95 11/10/22 18:03 97.5 F 97 H 18 137/81 95 11/10/22 17:00 92 H 18 166/99 98 11/10/22 16:58 100 General Appearance: mild distress (appears uncomfortable in wheelchair going down fo Peritoneal tap), other (language barrier,poor historian) Neurologic Exam: alert, oriented x 3, cooperative, normal mood/affect Eye Exam: scleral icterus Ears, Nose, Throat Exam: normal ENT inspection Neck Exam: normal inspection Respiratory Exam: diminished breath sounds (bases), No rhonchi, No wheezing Cardiovascular Exam: regular rate/rhythm Gastrointestinal/Abdomen Exam: distention (fluid wave, large amount of fluid present) Pelvic Exam: not done Rectal Exam: not done Extremity Exam: pedal edema (BLE pitting edema) Skin Exam: jaundice Results - Labs Lab/Micro Results: Lab Results-Last 24 Hours 11/10/22 11/10/22 11/10/22 Range/Units 12:50 13:15 13:15 WBC 8.2 (4.0-10.5) x10^3/uL RBC 3.14 L (4.1-5.4) x10^6/uL Hgb 10.5 L (12.0-16.0) g/dL Hct 32.1 L (35-47) % MCV 102.2 H (78-100) fL MCH 33.4 H (26-32) pg MCHC 32.7 (32-36) g/dL RDW 18.0 H (11.5-14.0) % Plt Count 164 (150-450) x10^3/uL MPV 8.7 (7.5-11.0) fL Gran % 61.2 (36.0-66.0) % Immature Gran % (Auto) 0.4 (0.00-0.4) % Nucleat RBC Rel Count 0.0 (0.00-0.1) % Eos # (Auto) 0.07 (0-0.5) x10^3/uL Immature Gran # (Auto) 0.03 (0.00-0.03) x10^3u/L Absolute Lymphs (auto) 2.45 (1.0-4.6) x10^3/uL Absolute Monos (auto) 0.53 (0.0-1.3) x10^3/uL Absolute Nucleated RBC 0.00 (0.00-0.01) x10^3u/L Lymphocytes % 29.7 (24.0-44.0) % Monocytes % 6.4 (0.0-12.0) % Eosinophils % 0.8 (0.00-5.0) % Basophils % 1.5 (0.0-0.4) % Absolute Granulocytes 5.04 (1.4-6.9) x10^3/uL Basophils # 0.12 (0-0.4) x10^3/uL PT (9.4-12.5) SECONDS INR (0.8-3.0) APTT (25.1-36.5) SECONDS Sodium 136 L (137-145) mmol/L Potassium 4.2 (3.5-5.1) mmol/L Chloride 108 H (98-107) mmol/L Carbon Dioxide 21 L (22-30) mmol/L Anion Gap 11.2 (5-15) MEQ/L BUN 10 (7-17) mg/dL Creatinine 1.15 H (0.52-1.04) mg/dL Estimated GFR 51.7 ML/MIN Glucose 99 (74-106) mg/dL POC Glucometer (74 to 106) mg/dL Hemoglobin A1c (4.5-6.0) % Calcium 9.0 (8.4-10.2) mg/dL Total Bilirubin 2.70 H (0.2-1.3) mg/dL AST 55 H (14-36) U/L ALT 33 (0-35) U/L Alkaline Phosphatase 141 H (38-126) U/L Troponin I (0.000-0.034) ng/mL NT-Pro-B Natriuret Pep (0-900) pg/mL Serum Total Protein 8.0 (6.3-8.2) g/dL Albumin 2.7 L (3.5-5.0) g/dL Lipase 317 H (23-300) U/L Vitamin B12 (239-931) pg/mL TSH 3rd Generation (0.47-4.68) mIU/L Urine WBC (Auto) 3-5 A (0-5) /HPF Urine RBC (Auto) 16-25 A (0-2) /HPF U Epithel Cells (Auto) RARE (FEW) /HPF Urine Bacteria (Auto) RARE (NEGATIVE) /HPF Urine Mucus (Auto) SLIGHT A (NEGATIVE) /HPF Ur Culture Indicated? YES Influenza Type A Ag (NEGATIVE) Influenza Type B Ag (NEGATIVE) RSV (PCR) (Negative) SARS-CoV-2 (PCR) (NEGATIVE) 11/10/22 11/10/22 11/10/22 Range/Units 13:15 16:00 17:00 WBC (4.0-10.5) x10^3/uL RBC (4.1-5.4) x10^6/uL Hgb (12.0-16.0) g/dL Hct (35-47) % MCV (78-100) fL MCH (26-32) pg MCHC (32-36) g/dL RDW (11.5-14.0) % Plt Count (150-450) x10^3/uL MPV (7.5-11.0) fL Gran % (36.0-66.0) % Immature Gran % (Auto) (0.00-0.4) % Nucleat RBC Rel Count (0.00-0.1) % Eos # (Auto) (0-0.5) x10^3/uL Immature Gran # (Auto) (0.00-0.03) x10^3u/L Absolute Lymphs (auto) (1.0-4.6) x10^3/uL Absolute Monos (auto) (0.0-1.3) x10^3/uL Absolute Nucleated RBC (0.00-0.01) x10^3u/L Lymphocytes % (24.0-44.0) % Monocytes % (0.0-12.0) % Eosinophils % (0.00-5.0) % Basophils % (0.0-0.4) % Absolute Granulocytes (1.4-6.9) x10^3/uL Basophils # (0-0.4) x10^3/uL PT (9.4-12.5) SECONDS INR (0.8-3.0) APTT (25.1-36.5) SECONDS Sodium (137-145) mmol/L Potassium (3.5-5.1) mmol/L Chloride (98-107) mmol/L Carbon Dioxide (22-30) mmol/L Anion Gap (5-15) MEQ/L BUN (7-17) mg/dL Creatinine (0.52-1.04) mg/dL Estimated GFR ML/MIN Glucose (74-106) mg/dL POC Glucometer (74 to 106) mg/dL Hemoglobin A1c (4.5-6.0) % Calcium (8.4-10.2) mg/dL Total Bilirubin (0.2-1.3) mg/dL AST (14-36) U/L ALT (0-35) U/L Alkaline Phosphatase (38-126) U/L Troponin I < 0.012 (0.000-0.034) ng/mL NT-Pro-B Natriuret Pep 426 (0-900) pg/mL Serum Total Protein (6.3-8.2) g/dL Albumin (3.5-5.0) g/dL Lipase (23-300) U/L Vitamin B12 (239-931) pg/mL TSH 3rd Generation 1.930 (0.47-4.68) mIU/L Urine WBC (Auto) (0-5) /HPF Urine RBC (Auto) (0-2) /HPF U Epithel Cells (Auto) (FEW) /HPF Urine Bacteria (Auto) (NEGATIVE) /HPF Urine Mucus (Auto) (NEGATIVE) /HPF Ur Culture Indicated? Influenza Type A Ag NEGATIVE (NEGATIVE) Influenza Type B Ag NEGATIVE (NEGATIVE) RSV (PCR) NEGATIVE (Negative) SARS-CoV-2 (PCR) NEGATIVE (NEGATIVE) 11/10/22 11/10/22 11/10/22 Range/Units 17:00 17:00 19:20 WBC (4.0-10.5) x10^3/uL RBC (4.1-5.4) x10^6/uL Hgb (12.0-16.0) g/dL Hct (35-47) % MCV (78-100) fL MCH (26-32) pg MCHC (32-36) g/dL RDW (11.5-14.0) % Plt Count (150-450) x10^3/uL MPV (7.5-11.0) fL Gran % (36.0-66.0) % Immature Gran % (Auto) (0.00-0.4) % Nucleat RBC Rel Count (0.00-0.1) % Eos # (Auto) (0-0.5) x10^3/uL Immature Gran # (Auto) (0.00-0.03) x10^3u/L Absolute Lymphs (auto) (1.0-4.6) x10^3/uL Absolute Monos (auto) (0.0-1.3) x10^3/uL Absolute Nucleated RBC (0.00-0.01) x10^3u/L Lymphocytes % (24.0-44.0) % Monocytes % (0.0-12.0) % Eosinophils % (0.00-5.0) % Basophils % (0.0-0.4) % Absolute Granulocytes (1.4-6.9) x10^3/uL Basophils # (0-0.4) x10^3/uL PT (9.4-12.5) SECONDS INR (0.8-3.0) APTT (25.1-36.5) SECONDS Sodium (137-145) mmol/L Potassium (3.5-5.1) mmol/L Chloride (98-107) mmol/L Carbon Dioxide (22-30) mmol/L Anion Gap (5-15) MEQ/L BUN (7-17) mg/dL Creatinine (0.52-1.04) mg/dL Estimated GFR ML/MIN Glucose (74-106) mg/dL POC Glucometer (74 to 106) mg/dL Hemoglobin A1c 7.79 H (4.5-6.0) % Calcium (8.4-10.2) mg/dL Total Bilirubin (0.2-1.3) mg/dL AST (14-36) U/L ALT (0-35) U/L Alkaline Phosphatase (38-126) U/L Troponin I < 0.012 (0.000-0.034) ng/mL NT-Pro-B Natriuret Pep (0-900) pg/mL Serum Total Protein (6.3-8.2) g/dL Albumin (3.5-5.0) g/dL Lipase (23-300) U/L Vitamin B12 > 1000 H (239-931) pg/mL TSH 3rd Generation (0.47-4.68) mIU/L Urine WBC (Auto) (0-5) /HPF Urine RBC (Auto) (0-2) /HPF U Epithel Cells (Auto) (FEW) /HPF Urine Bacteria (Auto) (NEGATIVE) /HPF Urine Mucus (Auto) (NEGATIVE) /HPF Ur Culture Indicated? Influenza Type A Ag (NEGATIVE) Influenza Type B Ag (NEGATIVE) RSV (PCR) (Negative) SARS-CoV-2 (PCR) (NEGATIVE) 11/10/22 11/10/22 11/10/22 Range/Units 21:30 23:15 Unknown WBC (4.0-10.5) x10^3/uL RBC (4.1-5.4) x10^6/uL Hgb (12.0-16.0) g/dL Hct (35-47) % MCV (78-100) fL MCH (26-32) pg MCHC (32-36) g/dL RDW (11.5-14.0) % Plt Count (150-450) x10^3/uL MPV (7.5-11.0) fL Gran % (36.0-66.0) % Immature Gran % (Auto) (0.00-0.4) % Nucleat RBC Rel Count (0.00-0.1) % Eos # (Auto) (0-0.5) x10^3/uL Immature Gran # (Auto) (0.00-0.03) x10^3u/L Absolute Lymphs (auto) (1.0-4.6) x10^3/uL Absolute Monos (auto) (0.0-1.3) x10^3/uL Absolute Nucleated RBC (0.00-0.01) x10^3u/L Lymphocytes % (24.0-44.0) % Monocytes % (0.0-12.0) % Eosinophils % (0.00-5.0) % Basophils % (0.0-0.4) % Absolute Granulocytes (1.4-6.9) x10^3/uL Basophils # (0-0.4) x10^3/uL PT 14.0 H (9.4-12.5) SECONDS INR 1.36 (0.8-3.0) APTT 33.9 (25.1-36.5) SECONDS Sodium (137-145) mmol/L Potassium (3.5-5.1) mmol/L Chloride (98-107) mmol/L Carbon Dioxide (22-30) mmol/L Anion Gap (5-15) MEQ/L BUN (7-17) mg/dL Creatinine (0.52-1.04) mg/dL Estimated GFR ML/MIN Glucose (74-106) mg/dL POC Glucometer 77 (74 to 106) mg/dL Hemoglobin A1c (4.5-6.0) % Calcium (8.4-10.2) mg/dL Total Bilirubin (0.2-1.3) mg/dL AST (14-36) U/L ALT (0-35) U/L Alkaline Phosphatase (38-126) U/L Troponin I < 0.012 (0.000-0.034) ng/mL NT-Pro-B Natriuret Pep (0-900) pg/mL Serum Total Protein (6.3-8.2) g/dL Albumin (3.5-5.0) g/dL Lipase (23-300) U/L Vitamin B12 (239-931) pg/mL TSH 3rd Generation (0.47-4.68) mIU/L Urine WBC (Auto) (0-5) /HPF Urine RBC (Auto) (0-2) /HPF U Epithel Cells (Auto) (FEW) /HPF Urine Bacteria (Auto) (NEGATIVE) /HPF Urine Mucus (Auto) (NEGATIVE) /HPF Ur Culture Indicated? Influenza Type A Ag (NEGATIVE) Influenza Type B Ag (NEGATIVE) RSV (PCR) (Negative) SARS-CoV-2 (PCR) (NEGATIVE) 11/11/22 11/11/22 11/11/22 Range/Units 04:00 04:40 06:32 WBC 10.0 (4.0-10.5) x10^3/uL RBC 3.17 L (4.1-5.4) x10^6/uL Hgb 10.3 L (12.0-16.0) g/dL Hct 32.4 L (35-47) % MCV 102.2 H (78-100) fL MCH 32.5 H (26-32) pg MCHC 31.8 L (32-36) g/dL RDW 18.0 H (11.5-14.0) % Plt Count 188 (150-450) x10^3/uL MPV 8.8 (7.5-11.0) fL Gran % 49.8 (36.0-66.0) % Immature Gran % (Auto) 0.2 (0.00-0.4) % Nucleat RBC Rel Count 0.0 (0.00-0.1) % Eos # (Auto) 0.18 (0-0.5) x10^3/uL Immature Gran # (Auto) 0.02 (0.00-0.03) x10^3u/L Absolute Lymphs (auto) 3.94 (1.0-4.6) x10^3/uL Absolute Monos (auto) 0.77 (0.0-1.3) x10^3/uL Absolute Nucleated RBC 0.00 (0.00-0.01) x10^3u/L Lymphocytes % 39.4 (24.0-44.0) % Monocytes % 7.7 (0.0-12.0) % Eosinophils % 1.8 (0.00-5.0) % Basophils % 1.1 (0.0-0.4) % Absolute Granulocytes 4.99 (1.4-6.9) x10^3/uL Basophils # 0.11 (0-0.4) x10^3/uL PT (9.4-12.5) SECONDS INR (0.8-3.0) APTT (25.1-36.5) SECONDS Sodium 137 (137-145) mmol/L Potassium 3.7 (3.5-5.1) mmol/L Chloride 106 (98-107) mmol/L Carbon Dioxide 25 (22-30) mmol/L Anion Gap 9.4 (5-15) MEQ/L BUN 9 (7-17) mg/dL Creatinine 1.14 H (0.52-1.04) mg/dL Estimated GFR 52.2 ML/MIN Glucose 79 (74-106) mg/dL POC Glucometer 74 (74 to 106) mg/dL Hemoglobin A1c (4.5-6.0) % Calcium 8.9 (8.4-10.2) mg/dL Total Bilirubin 2.40 H (0.2-1.3) mg/dL AST 53 H (14-36) U/L ALT 32 (0-35) U/L Alkaline Phosphatase 137 H (38-126) U/L Troponin I (0.000-0.034) ng/mL NT-Pro-B Natriuret Pep (0-900) pg/mL Serum Total Protein 8.0 (6.3-8.2) g/dL Albumin 2.6 L (3.5-5.0) g/dL Lipase (23-300) U/L Vitamin B12 (239-931) pg/mL TSH 3rd Generation (0.47-4.68) mIU/L Urine WBC (Auto) (0-5) /HPF Urine RBC (Auto) (0-2) /HPF U Epithel Cells (Auto) (FEW) /HPF Urine Bacteria (Auto) (NEGATIVE) /HPF Urine Mucus (Auto) (NEGATIVE) /HPF Ur Culture Indicated? Influenza Type A Ag (NEGATIVE) Influenza Type B Ag (NEGATIVE) RSV (PCR) (Negative) SARS-CoV-2 (PCR) (NEGATIVE) 11/11/22 Range/Units 10:57 WBC (4.0-10.5) x10^3/uL RBC (4.1-5.4) x10^6/uL Hgb (12.0-16.0) g/dL Hct (35-47) % MCV (78-100) fL MCH (26-32) pg MCHC (32-36) g/dL RDW (11.5-14.0) % Plt Count (150-450) x10^3/uL MPV (7.5-11.0) fL Gran % (36.0-66.0) % Immature Gran % (Auto) (0.00-0.4) % Nucleat RBC Rel Count (0.00-0.1) % Eos # (Auto) (0-0.5) x10^3/uL Immature Gran # (Auto) (0.00-0.03) x10^3u/L Absolute Lymphs (auto) (1.0-4.6) x10^3/uL Absolute Monos (auto) (0.0-1.3) x10^3/uL Absolute Nucleated RBC (0.00-0.01) x10^3u/L Lymphocytes % (24.0-44.0) % Monocytes % (0.0-12.0) % Eosinophils % (0.00-5.0) % Basophils % (0.0-0.4) % Absolute Granulocytes (1.4-6.9) x10^3/uL Basophils # (0-0.4) x10^3/uL PT (9.4-12.5) SECONDS INR (0.8-3.0) APTT (25.1-36.5) SECONDS Sodium (137-145) mmol/L Potassium (3.5-5.1) mmol/L Chloride (98-107) mmol/L Carbon Dioxide (22-30) mmol/L Anion Gap (5-15) MEQ/L BUN (7-17) mg/dL Creatinine (0.52-1.04) mg/dL Estimated GFR ML/MIN Glucose (74-106) mg/dL POC Glucometer 69 L (74 to 106) mg/dL Hemoglobin A1c (4.5-6.0) % Calcium (8.4-10.2) mg/dL Total Bilirubin (0.2-1.3) mg/dL AST (14-36) U/L ALT (0-35) U/L Alkaline Phosphatase (38-126) U/L Troponin I (0.000-0.034) ng/mL NT-Pro-B Natriuret Pep (0-900) pg/mL Serum Total Protein (6.3-8.2) g/dL Albumin (3.5-5.0) g/dL Lipase (23-300) U/L Vitamin B12 (239-931) pg/mL TSH 3rd Generation (0.47-4.68) mIU/L Urine WBC (Auto) (0-5) /HPF Urine RBC (Auto) (0-2) /HPF U Epithel Cells (Auto) (FEW) /HPF Urine Bacteria (Auto) (NEGATIVE) /HPF Urine Mucus (Auto) (NEGATIVE) /HPF Ur Culture Indicated? Influenza Type A Ag (NEGATIVE) Influenza Type B Ag (NEGATIVE) RSV (PCR) (Negative) SARS-CoV-2 (PCR) (NEGATIVE) Accuchecks Date 11/11/22 Date 11/11/22 Date 11/10/22 Time 11:20 Time 07:38 - Radiology Impressions Radiology Exams & Impressions: Radiology Procedures Category Date Time Status ABDOMEN AND PELVIS W/0 CONTRAS [CT] Stat Exams 11/10/22 12:37 Completed ABDOMINAL PARACENTESIS [US] Routine Exams 11/11/22 07:07 Ordered Assessment/Plan (1) Ascites Current Visit: Yes Status: Acute Assessment & Plan: requesting records to [facility] Code(s): R18.8 - OTHER ASCITES (2) Cholelithiasis Current Visit: Yes Status: Acute Assessment & Plan: See CT abd/pelvis - Surgery consult (3) Elevated lipase Current Visit: Yes Status: Acute Code(s): R74.8 - ABNORMAL LEVELS OF OTHER SERUM ENZYMES (4) Liver cirrhosis Current Visit: Yes Status: Chronic Qualifiers: Ascites presence: with ascites (5) Congestive heart failure Current Visit: Yes Status: Acute Assessment & Plan: ECHO ordered. No chest pain and troponins not elevated Code(s): I50.9 - HEART FAILURE, UNSPECIFIED
--- NOTE | 2022-11-11 14:36 | XRAY ---
Indication: Ascites. Informed consent obtained. Patient placed supine. Initial abdominal ultrasound performed for localization. Largest pocket in the right lower quadrant. The abdominal wall was prepped and draped in sterile fashion. 1% lidocaine plain was used for local anesthesia. Tiny skin incision made. 5 Far[place] Yueh paracentesis needle/catheter was then percutaneously inserted. Once fluid was aspirating, the outer catheter was then advanced with the inner needle removed. Catheter was connected to a Vacutainer. No fluid aspirated after multiple attempts of manipulating catheter. Site was abandoned. Additional pocket of fluid seen in the left lower quadrant. Again abdominal wall prepped and draped in sterile fashion. 1% lidocaine plain used for local anesthesia. Tiny skin incision made. 5 [place] Yueh paracentesis needle/catheter was then percutaneous inserted. Once fluid was aspirating, the outer catheter was then advanced with the inner needle removed. Catheter was connected to Vacutainer. Approximately 20 cc aspirated, collected, and sent to laboratory for analysis. Then approximately 1.4 L of lake colored transudative fluid aspirated and was disposed of properly. Repeat sonogram demonstrates marked improvement with little residual. Catheter removed. Hemostasis achieved using digital pressure over the puncture site. Band-Aid applied over the puncture site. Impression: Technically successful ultrasound guided abdominal paracentesis for both diagnostic and therapeutic purpose. No immediate complications or blood loss.
[2022-11-12] MEDS: MORPHINE SULFATE 2 MG INJ IV PRN ×2 (00:17→10:46)
[2022-11-12] MEDS: Glucophage 850 MG PO SCH ×2 (08:09→16:11)
[2022-11-12] MEDS: Glucotrol 5 MG PO SCH ×2 (08:10→16:11)
[2022-11-12 08:27] LABS: Absolute Neutrophil Ct (ANC) 3.14 x10^3/uL (1.4-6.9); Basophil (Absolute #) 0.09 x10^3/uL (0-0.4); Eosinophil % 2.2 % (0.00-5.0); Eosinophil (Absolute #) 0.14 x10^3/uL (0-0.5); Hematocrit 32.9 % (35-47); Hemoglobin 10.7 g/dL (12.0-16.0); Lymphocyte (Absolute #) 2.38 x10^3/uL (1.0-4.6); Lymphocytes % 37.8 % (24.0-44.0); Mean Cell Volume 103.5 fL (78-100); Mean Corpuscular Hemoglobin 33.6 pg (26-32); Mean Corpuscular Hgb Concent. 32.5 g/dL (32-36); Mean Platelet Volume 8.6 fL (7.5-11.0); Monocyte (Absolute #) 0.52 x10^3/uL (0.0-1.3); Monocytes % 8.3 % (0.0-12.0); Platelet Count 146 x10^3/uL (150-450); Red Blood Count 3.18 x10^6/uL (4.1-5.4); Red Cell Distribution Width 18.2 % (11.5-14.0); White Blood Count 6.3 x10^3/uL (4.0-10.5)
[2022-11-12 08:42] LABS: ALBUMIN 2.6 g/dL (3.5-5.0); ANION GAP 9.6 MEQ/L (5-15); BILIRUBIN,TOTAL 2.5 mg/dL (0.2-1.3); Calcium 8.7 mg/dL (8.4-10.2); Creatinine 1 1.18 mg/dL (0.52-1.04); EST GLOMERULAR FILTRATION RATE 50.2 ML/MIN; Potassium 3.6 mmol/L (3.5-5.1); Total Protein 7.8 g/dL (6.3-8.2)
[2022-11-12] MEDS: Lopressor 25MG Tab PO SCH ×2 (10:21→22:12)
[2022-11-12] MEDS ORDERED: NORCO 5/325 MG PO PRN (17:43)
[2022-11-12] MEDS ORDERED: NORCO 5/325 MG ONE (17:45)
[2022-11-13] MEDS: NORCO 5/325 MG PO PRN ×2 (05:10→13:40)
[2022-11-13 05:15] LABS: Hematocrit 27.7 % (35-47); Hemoglobin 9.1 g/dL (12.0-16.0); Mean Corpuscular Hemoglobin 32.9 pg (26-32); Mean Corpuscular Hgb Concent. 32.9 g/dL (32-36); Mean Platelet Volume 8.8 fL (7.5-11.0); Platelet Count 124 x10^3/uL (150-450); Red Blood Count 2.77 x10^6/uL (4.1-5.4); Red Cell Distribution Width 18.2 % (11.5-14.0); White Blood Count 5.7 x10^3/uL (4.0-10.5)
[2022-11-13 05:18] LABS: ALBUMIN 2.3 g/dL (3.5-5.0); ANION GAP 5.3 MEQ/L (5-15); BILIRUBIN,TOTAL 2.2 mg/dL (0.2-1.3); Calcium 8.6 mg/dL (8.4-10.2); Creatinine 1 1.15 mg/dL (0.52-1.04); EST GLOMERULAR FILTRATION RATE 51.7 ML/MIN; Potassium 3.4 mmol/L (3.5-5.1)
[2022-11-13 06:08] LABS: HBsAg Screen Negative (Negative); HCV Ab 0.3 s/co ratio (0.0-0.9); Hep A Ab, IgM Negative (Negative); Hep B Core Ab, IgM Negative (Negative)
[2022-11-13] MEDS: Glucophage 850 MG PO SCH (08:20)
[2022-11-13] MEDS: Glucotrol 5 MG PO SCH (08:21)
[2022-11-13] MEDS: Lopressor 25MG Tab PO SCH (09:12)
--- NOTE | 2022-11-13 10:59 | ECHO ---
Transthoracic echocardiographic examination and color Doppler was done on 11/12/2022. INDICATION: Cardiomegaly, hypertension. IMPRESSION: 1) NO REGIONAL WALL MOTION ABNORMALITY. ESTIMATED GLOBAL LEFT VENTRICULAR EJECTION FRACTION OF AROUND 65 TO 70%. 2) TRACE MITRAL REGURGITATION. 3) TRACE TRICUSPID REGURGITATION. RIGHT VENTRICULAR SYSTOLIC PRESSURE OF 35 MM OF MERCURY. 4) LEFT VENTRICULAR HYPERTROPHY. 5) LEFT VENTRICLE DIASTOLIC DYSFUNCTION. The left ventricle is visualized and demonstrated adequate motion of all the segments. Estimated global left ventricular ejection fraction between 65 to 70%. There is mild left ventricular hypertrophy. The mitral valve is seen and this opens adequately. There is trace mitral regurgitation. Left atrium is normal. Tissue Doppler study of the lateral mitral annulus suggestive of left ventricle diastolic dysfunction. The aortic valve opens adequately. The peak transaortic gradient is 13 and the mean gradient 8 mm of Mercury. The right side chambers are normal. There is trace tricuspid regurgitation. The right ventricular systolic pressure of 35 mm of Mercury.
[2022-11-13 11:16] VITALS: BP 177/81; PULSE 67; O2SAT 97
== END 2022-11-13 16:25 | disposition home or self-care (01) ==
LOC: ED 10:44 → MED SURG 17:40
PROVIDERS: ADMIT Family Medicine; ATTEND Family Medicine
DX: R18.8 Other ascites (principal); K80.20 Calculus of gallbladder without cholecystitis without obstruction; R74.8 Abnormal levels of other serum enzymes; K74.60 Unspecified cirrhosis of liver; I50.9 Heart failure, unspecified; E11.9 Type 2 diabetes mellitus without complications; Z79.899 Other long term (current) drug therapy; Z20.828 Contact with and (suspected) exposure to other viral communicable diseases
CPT/HCPCS: 0241U; 36000; 36415; 49083; 74176; 80053; 80074; 81015; 82150; 82607; 82947; 83036; 83690; 83880; 84443; 84484; 85025; 85027; 85610; 85730; 87070; 87086; 89051; 93268; 93306; 99284; G0378; J2270; A9270-GY